=== PATIENT | male | born 1950 | race Caucasian/White ===

== ENCOUNTER 2018-04-18 18:50 | Emergency (ER) | payer MEDICARE, BC ==
[2018-04-18] MEDS: SOD CHLORIDE 0.9% 1,000 ML IV (18:20)
[2018-04-18 19:13] LABS: ADD MAN DIFF? NO
[2018-04-18 19:18] LABS: WHITE BLOOD COUNT 8.3 10^3/ul (4.8-10.8)
[2018-04-18 19:18] LABS: BASOPHIL # 0.1 10^3/ul (0.0-0.1); BASOPHILS % 0.7 % (0.0-2.0); EOSINOPHILS # 0.1 10^3/ul (0.0-0.5); EOSINOPHILS % 0.8 % (0.0-7.0); HEMATOCRIT 30.2 % (42.0-52.0); LYMPHOCYTES # 1.7 10^3/ul (0.8-2.9); LYMPHOCYTES % 20.6 % (15.0-51.0); MEAN CORPUSCULAR HEMOGLOBIN 31.6 pg (29.0-33.0); MEAN CORPUSCULAR HGB CONC 33.1 g/dl (32.0-37.0); MEAN CORPUSCULAR VOLUME 95.6 fl (82.0-101.0); MEAN PLATELET VOLUME 9.6 fl (7.4-10.4); MONOCYTE # 0.8 10^3/ul (0.3-0.9); MONOCYTES % 9.4 % (0.0-11.0); NEUTROPHIL # 5.6 10^3/ul (1.6-7.5); NEUTROPHILS % 68.3 % (39.0-77.0); PLATELET COUNT 258 10^3/UL (140-415); RED BLOOD COUNT 3.16 10^6/ul (4.70-6.10); RED CELL DISTRIBUTION WIDTH 14.8 % (11.5-14.5)
[2018-04-18 19:38] LABS: ANION GAP 15 (8-16); BLOOD UREA NITROGEN 22 mg/dl (7-20); CALCIUM 9.3 mg/dl (8.4-10.2); CARBON DIOXIDE 24 mmol/L (21-31); CHLORIDE 105 mmol/L (97-110); CREATININE 1.06 mg/dl (0.61-1.24); GLUCOSE 156 mg/dl (70-220); POTASSIUM 4.4 mmol/L (3.5-5.1); SODIUM 140 mmol/L (135-144)
[2018-04-18 19:50] LABS: TROPONIN-I < 0.012 ng/ml (0.000-0.120)
== END 2018-04-18 22:59 | disposition home or self-care (01) ==
LOC: E/R 18:50
DX: D64.9 Anemia, unspecified (principal); R53.1 Weakness; E11.9 Type 2 diabetes mellitus without complications; R51 Headache; Z79.84 Long term (current) use of oral hypoglycemic drugs
CPT/HCPCS: 36415; 70450; 71045; 80048; 84484; 85025; 93005; 99285-25

== ENCOUNTER 2018-06-09 20:39 | Inpatient (IN) | payer MEDICARE, BC ==
[2018-06-09] MEDS: SODIUM CHLORIDE 0.9% 1L BAG IV* (20:58)
[2018-06-09 21:00] LABS: ABNORMAL IP MESSAGE 1; HEMOGLOBIN 10.9 g/dl (14.0-18.0); MEAN CORPUSCULAR HEMOGLOBIN 31.8 pg (29.0-33.0); MEAN CORPUSCULAR HGB CONC 34.1 g/dl (32.0-37.0); MEAN CORPUSCULAR VOLUME 93.3 fl (82.0-101.0); MEAN PLATELET VOLUME 9.9 fl (7.4-10.4); PLATELET COUNT 319 10^3/UL (140-415); POSITIVE DIFF @See below; RED BLOOD COUNT 3.43 10^6/ul (4.70-6.10); RED CELL DISTRIBUTION WIDTH 13.2 % (11.5-14.5)
[2018-06-09 21:00] LABS: WHITE BLOOD COUNT 26.2 10^3/ul (4.8-10.8)
[2018-06-09] MEDS: ACETAMINOPHEN 650 MG SUPP PR (21:02)
[2018-06-09] MEDS: ACETAMINOPHEN 325 MG TAB PO (21:03)
[2018-06-09 21:08] LABS: ADD MAN DIFF? YES; PATH REVIEW? YES
[2018-06-09 21:20] LABS: INR 1.26; PARTIAL THROMBOPLASTIN TIME 29.7 Sec (23.0-35.0); PT RATIO 1.3
[2018-06-09 21:26] LABS: ANION GAP 11 (5-13); BLOOD UREA NITROGEN 34 mg/dl (7-20); CALCIUM 9.6 mg/dl (8.4-10.2); CARBON DIOXIDE 26 mmol/L (21-31); CHLORIDE 105 mmol/L (97-110); CREATININE 1.03 mg/dl (0.61-1.24); Estimated GFR > 60 mL/min (>60); GLUCOSE 145 mg/dl (70-220); POTASSIUM 4.5 mmol/L (3.5-5.1); SODIUM 142 mmol/L (135-144)
[2018-06-09 21:35] LABS: TROPONIN-I < 0.012 ng/ml (0.000-0.120)
[2018-06-09 21:42] LABS: ADD UMIC YES; UR ASCORBIC ACID NEGATIVE (NEGATIVE); UR BACTERIA FEW /HPF (NONE SEEN); UR BILIRUBIN (Dip) NEGATIVE (NEGATIVE); UR BLOOD (Dip) 3+ mg/dL (NEGATIVE); UR CLARITY TURBID (CLEAR); UR COLOR YELLOW (YELLOW); UR GLUCOSE (Dip) NEGATIVE (NEGATIVE); UR KETONES (Dip) NEGATIVE (NEGATIVE); UR LEUKOCYTE ESTERASE (Dip) 3+ Leu/ul (NEGATIVE); UR MUCUS FEW /HPF (NONE SEEN); UR NITRITE (Dip) POSITIVE (NEGATIVE); UR RBC 36 /HPF (0-5); UR SPECIFIC GRAVITY (Dip) 1.015 (1.003-1.030); UR TOTAL PROTEIN (Dip) 1+ mg/dl (NEGATIVE); UR UROBILINOGEN (Dip) NEGATIVE (NEGATIVE); UR WBC > 182 /HPF (0-5)
[2018-06-09 21:46] LABS: BAND NEUTROPHILS #M 1.3 10^3/ul (0.0-0.6); BAND NEUTROPHILS % (M) 5 % (0-4); LYMPHOCYTES % (M) 8 % (15-51); MONOCYTES % (M) 8 % (0-11); PLATELET ESTIMATE NORMAL; SEGMENTED NEUTROPHILS (M) % 79 % (39-77); SMUDGE%M 7 % (0-0)
[2018-06-09] MEDS: CEFTRIAXONE 1 GM/50 ML (PMX) 50 ML IVPB (22:30)
[2018-06-09] MEDS: PIPER-TAZO 3.375 GM IV (PMX) 100 ML IVPB (23:10)
[2018-06-10] MEDS ORDERED: NACL 0.9% 3 ML SYG IV (00:30)
[2018-06-10] MEDS ORDERED: ACETAMINOPHEN 650 MG SUPP PR (00:30)
[2018-06-10 01:34] LABS: LACTIC ACID 1.1 mmol/L (0.5-2.0)
[2018-06-10] MEDS: SOD CHLORIDE 0.9% 1,000 ML IV ×3 (02:30→17:25)
[2018-06-10] MEDS ORDERED: GLUCOSE GEL 15 GRAM TUBE PO ×2 (05:00)
[2018-06-10] MEDS ORDERED: GLUCAGON 1 MG INJ IM (05:00)
[2018-06-10] MEDS ORDERED: DEXTROSE 50% 50 ML SYRINGE IV (05:00)
[2018-06-10] MEDS ORDERED: GLUCOSE GEL 15 GRAM TUBE BUCCAL (05:00)
[2018-06-10] MEDS: PIPER-TAZO 3.375 GM IV (PMX) 100 ML IVPB ×3 (06:05→17:27)
[2018-06-10 06:15] LABS: ADD MAN DIFF? NO
[2018-06-10 06:24] LABS: BASOPHIL # 0.1 10^3/ul (0.0-0.1); BASOPHILS % 0.3 % (0.0-2.0); EOSINOPHILS # 0.1 10^3/ul (0.0-0.5); EOSINOPHILS % 0.5 % (0.0-7.0); HEMATOCRIT 28.5 % (42.0-52.0); HEMOGLOBIN 9.5 g/dl (14.0-18.0); LYMPHOCYTES # 1.1 10^3/ul (0.8-2.9); LYMPHOCYTES % 5.6 % (15.0-51.0); MEAN CORPUSCULAR HEMOGLOBIN 31.7 pg (29.0-33.0); MEAN CORPUSCULAR HGB CONC 33.3 g/dl (32.0-37.0); MEAN PLATELET VOLUME 10.3 fl (7.4-10.4); MONOCYTE # 1.3 10^3/ul (0.3-0.9); MONOCYTES % 6.2 % (0.0-11.0); NEUTROPHIL # 17.4 10^3/ul (1.6-7.5); NEUTROPHILS % 86.2 % (39.0-77.0); PLATELET COUNT 278 10^3/UL (140-415); RED CELL DISTRIBUTION WIDTH 13.2 % (11.5-14.5)
[2018-06-10 06:24] LABS: WHITE BLOOD COUNT 20.2 10^3/ul (4.8-10.8)
[2018-06-10 06:48] LABS: ALANINE AMINOTRANSFERASE 12 IU/L (13-69); ALBUMIN 3.4 g/dl (3.3-4.9); ALBUMIN/GLOBULIN RATIO 1.17; ALKALINE PHOSPHATASE 76 IU/L (42-121); ANION GAP 11 (5-13); ASPARTATE AMINO TRANSFERASE 21 IU/L (15-46); BILIRUBIN,INDIRECT 0.1 mg/dl (0-1.1); BILIRUBIN,TOTAL 0.1 mg/dl (0.2-1.3); BLOOD UREA NITROGEN 27 mg/dl (7-20); CALCIUM 8.8 mg/dl (8.4-10.2); CARBON DIOXIDE 25 mmol/L (21-31); CHLORIDE 109 mmol/L (97-110); CREATININE 1.02 mg/dl (0.61-1.24); Estimated GFR > 60 mL/min (>60); GLUCOSE 121 mg/dl (70-220); POTASSIUM 3.5 mmol/L (3.5-5.1); SODIUM 145 mmol/L (135-144); TOTAL PROTEIN 6.3 g/dl (6.1-8.1)
[2018-06-10] MEDS: APIXABAN 5 MG TABLET PO (09:06)
[2018-06-10] MEDS: INSULIN ASPART [NOVOLOG] 3 ML PEN SC ×4 (09:08→21:00)
[2018-06-10] MEDS: HALOPERIDOL 5 MG INJ IM ×2 (12:35→22:54)
[2018-06-10] MEDS: QUETIAPINE 25 MG TAB PO ×2 (14:47→21:22)
[2018-06-10] MEDS ORDERED: QUETIAPINE 25 MG TAB PO (21:00)
[2018-06-10] MEDS: ATORVASTATIN 40 MG TAB PO (21:22)
[2018-06-10] MEDS: LORAZEPAM 2 MG INJ IV (23:24)
[2018-06-11] MEDS: PIPER-TAZO 3.375 GM IV (PMX) 100 ML IVPB ×4 (00:25→17:55)
[2018-06-11] MEDS ORDERED: VANCOMYCIN IV PER PHARMACY XX (01:30)
[2018-06-11] MEDS: ACCU-CHEK XX (02:00)
[2018-06-11] MEDS: VANCOMYCIN 1.25 GM in SOD CHLORIDE 0.9% 250 ML IVPB (02:37)
[2018-06-11 05:28] LABS: ADD MAN DIFF? NO
[2018-06-11 05:36] LABS: WHITE BLOOD COUNT 17.4 10^3/ul (4.8-10.8)
[2018-06-11 05:36] LABS: BASOPHIL # 0.1 10^3/ul (0.0-0.1); BASOPHILS % 0.3 % (0.0-2.0); EOSINOPHILS # 0.2 10^3/ul (0.0-0.5); EOSINOPHILS % 1.4 % (0.0-7.0); HEMATOCRIT 28.3 % (42.0-52.0); HEMOGLOBIN 9.6 g/dl (14.0-18.0); LYMPHOCYTES % 11.6 % (15.0-51.0); MEAN CORPUSCULAR HEMOGLOBIN 31.8 pg (29.0-33.0); MEAN CORPUSCULAR HGB CONC 33.9 g/dl (32.0-37.0); MEAN CORPUSCULAR VOLUME 93.7 fl (82.0-101.0); MEAN PLATELET VOLUME 10.2 fl (7.4-10.4); MONOCYTE # 1.3 10^3/ul (0.3-0.9); MONOCYTES % 7.2 % (0.0-11.0); NEUTROPHIL # 13.7 10^3/ul (1.6-7.5); NEUTROPHILS % 78.9 % (39.0-77.0); PLATELET COUNT 298 10^3/UL (140-415); RED BLOOD COUNT 3.02 10^6/ul (4.70-6.10); RED CELL DISTRIBUTION WIDTH 13.1 % (11.5-14.5)
[2018-06-11 06:00] LABS: CHOL/HDL RATIO 2.9 RATIO; CHOLESTEROL 98 mg/dl (100-200); HDL CHOLESTEROL 33 mg/dl (30-78); LDL CHOLESTEROL,CALCULATED 50 mg/dl; MAGNESIUM 1.8 mg/dl (1.7-2.5); TRIGLYCERIDES 75 mg/dl (0-149)
[2018-06-11 06:00] LABS: PHOSPHORUS 3.5 mg/dl (2.5-4.9)
[2018-06-11 06:09] LABS: ALANINE AMINOTRANSFERASE 31 IU/L (13-69); ALBUMIN 3.1 g/dl (3.3-4.9); ALBUMIN/GLOBULIN RATIO 1.06; ALKALINE PHOSPHATASE 84 IU/L (42-121); ANION GAP 9 (5-13); ASPARTATE AMINO TRANSFERASE 27 IU/L (15-46); BILIRUBIN,INDIRECT 0.3 mg/dl (0-1.1); BILIRUBIN,TOTAL 0.3 mg/dl (0.2-1.3); BLOOD UREA NITROGEN 23 mg/dl (7-20); CALCIUM 8.9 mg/dl (8.4-10.2); CARBON DIOXIDE 26 mmol/L (21-31); CHLORIDE 111 mmol/L (97-110); CREATININE 1.04 mg/dl (0.61-1.24); Estimated GFR > 60 mL/min (>60); GLUCOSE 154 mg/dl (70-220); POTASSIUM 3.2 mmol/L (3.5-5.1); SODIUM 146 mmol/L (135-144)
[2018-06-11] MEDS: INSULIN ASPART [NOVOLOG] 3 ML PEN SC ×4 (08:34→20:55)
[2018-06-11] MEDS: QUETIAPINE 25 MG TAB PO ×2 (09:33→20:57)
[2018-06-11] MEDS: POTASSIUM CHLORIDE (SR) 20 MEQ TAB PO (09:36)
[2018-06-11] MEDS: ENOXAPARIN 80 MG/0.8 ML SYG SC ×2 (09:42→20:59)
[2018-06-11] MEDS: SOD CHLORIDE 0.9% 1,000 ML IV (09:44)
[2018-06-11] MEDS: VANCOMYCIN 1 GM 250 ML IVPB (14:49)
[2018-06-11] MEDS: HALOPERIDOL 5 MG INJ IM (17:55)
[2018-06-11] MEDS: ATORVASTATIN 40 MG TAB PO (20:57)
[2018-06-12] MEDS: PIPER-TAZO 3.375 GM IV (PMX) 100 ML IVPB ×5 (00:11→23:50)
[2018-06-12] MEDS: SOD CHLORIDE 0.9% 1,000 ML IV (01:57)
[2018-06-12] MEDS: ACCU-CHEK XX (02:00)
[2018-06-12] MEDS: VANCOMYCIN 1 GM 250 ML IVPB ×2 (02:24→15:23)
[2018-06-12] MEDS: HALOPERIDOL 5 MG INJ IM ×2 (03:52→11:19)
[2018-06-12] MEDS: INSULIN ASPART [NOVOLOG] 3 ML PEN SC ×4 (08:00→21:00)
[2018-06-12] MEDS: ENOXAPARIN 80 MG/0.8 ML SYG SC ×2 (08:40→21:08)
[2018-06-12] MEDS: QUETIAPINE 25 MG TAB PO ×2 (08:41→21:04)
[2018-06-12 10:32] LABS: ADD MAN DIFF? NO
[2018-06-12 10:57] LABS: PHOSPHORUS 3.5 mg/dl (2.5-4.9)
[2018-06-12 10:57] LABS: ALANINE AMINOTRANSFERASE 31 IU/L (13-69); ALBUMIN 3.8 g/dl (3.3-4.9); ALBUMIN/GLOBULIN RATIO 1.22; ALKALINE PHOSPHATASE 142 IU/L (42-121); ANION GAP 12 (5-13); ASPARTATE AMINO TRANSFERASE 42 IU/L (15-46); BILIRUBIN,INDIRECT 0.6 mg/dl (0-1.1); BILIRUBIN,TOTAL 0.6 mg/dl (0.2-1.3); BLOOD UREA NITROGEN 19 mg/dl (7-20); CALCIUM 9.2 mg/dl (8.4-10.2); CARBON DIOXIDE 24 mmol/L (21-31); CHLORIDE 108 mmol/L (97-110); CREATININE 0.98 mg/dl (0.61-1.24); Estimated GFR > 60 mL/min (>60); GLUCOSE 199 mg/dl (70-220); MAGNESIUM 1.5 mg/dl (1.7-2.5); POTASSIUM 3.5 mmol/L (3.5-5.1); SODIUM 144 mmol/L (135-144); TOTAL PROTEIN 6.9 g/dl (6.1-8.1)
[2018-06-12 11:06] LABS: BASOPHILS % 0.2 % (0.0-2.0); EOSINOPHILS # 0.1 10^3/ul (0.0-0.5); EOSINOPHILS % 0.5 % (0.0-7.0); HEMATOCRIT 31.2 % (42.0-52.0); HEMOGLOBIN 10.6 g/dl (14.0-18.0); LYMPHOCYTES # 1.3 10^3/ul (0.8-2.9); LYMPHOCYTES % 7.3 % (15.0-51.0); MEAN CORPUSCULAR HEMOGLOBIN 31.5 pg (29.0-33.0); MEAN CORPUSCULAR VOLUME 92.9 fl (82.0-101.0); MEAN PLATELET VOLUME 10.2 fl (7.4-10.4); MONOCYTE # 1.2 10^3/ul (0.3-0.9); MONOCYTES % 6.7 % (0.0-11.0); NEUTROPHIL # 15.3 10^3/ul (1.6-7.5); NEUTROPHILS % 84.7 % (39.0-77.0); PLATELET COUNT 337 10^3/UL (140-415); RED BLOOD COUNT 3.36 10^6/ul (4.70-6.10)
[2018-06-12 14:43] LABS: VANCOMYCIN,TROUGH 13.1 ug/ml (10.0-20.0)
[2018-06-12] MEDS: TAMSULOSIN (SR) 0.4 MG CAP PO (17:47)
[2018-06-12] MEDS: MEMANTINE 5 MG TAB PO (17:47)
[2018-06-12] MEDS: ATORVASTATIN 40 MG TAB PO (21:04)
[2018-06-12] MEDS: traZODone 50 MG TAB PO (21:07)
[2018-06-12] MEDS: SENNA/DOCUSATE NA (8.6MG/50MG) TAB PO (21:07)
[2018-06-12] MEDS: LACTOBACILLUS RHAMNOSUS CAP PO (21:07)
[2018-06-13] MEDS: ACCU-CHEK XX ×2 (02:00→23:43)
[2018-06-13] MEDS: VANCOMYCIN 1 GM 250 ML IVPB ×2 (02:19→14:46)
[2018-06-13] MEDS: PIPER-TAZO 3.375 GM IV (PMX) 100 ML IVPB ×4 (05:49→23:32)
[2018-06-13 07:11] LABS: ADD MAN DIFF? NO
[2018-06-13 07:18] LABS: WHITE BLOOD COUNT 18.4 10^3/ul (4.8-10.8)
[2018-06-13 07:18] LABS: ABNORMAL IP MESSAGE 1; BASOPHILS % 0.2 % (0.0-2.0); EOSINOPHILS # 0.1 10^3/ul (0.0-0.5); EOSINOPHILS % 0.4 % (0.0-7.0); HEMATOCRIT 28.3 % (42.0-52.0); HEMOGLOBIN 9.5 g/dl (14.0-18.0); LYMPHOCYTES % 5.7 % (15.0-51.0); MEAN CORPUSCULAR HGB CONC 33.6 g/dl (32.0-37.0); MEAN CORPUSCULAR VOLUME 92.5 fl (82.0-101.0); MEAN PLATELET VOLUME 10.1 fl (7.4-10.4); MONOCYTE # 1.6 10^3/ul (0.3-0.9); MONOCYTES % 8.4 % (0.0-11.0); NEUTROPHIL # 15.5 10^3/ul (1.6-7.5); NEUTROPHILS % 84.4 % (39.0-77.0); PLATELET COUNT 283 10^3/UL (140-415); POSITIVE DIFF @See below; RED BLOOD COUNT 3.06 10^6/ul (4.70-6.10); RED CELL DISTRIBUTION WIDTH 12.7 % (11.5-14.5)
[2018-06-13 08:03] LABS: PHOSPHORUS 3.3 mg/dl (2.5-4.9)
[2018-06-13 08:03] LABS: INR 1.23; MAGNESIUM 1.5 mg/dl (1.7-2.5); PROTIME 15.7 Sec (11.9-14.9); PT RATIO 1.2
[2018-06-13 08:04] LABS: ALANINE AMINOTRANSFERASE 37 IU/L (13-69); ALBUMIN 2.9 g/dl (3.3-4.9); ALKALINE PHOSPHATASE 150 IU/L (42-121); ANION GAP 8 (5-13); ASPARTATE AMINO TRANSFERASE 44 IU/L (15-46); BILIRUBIN,INDIRECT 0.4 mg/dl (0-1.1); BILIRUBIN,TOTAL 0.4 mg/dl (0.2-1.3); BLOOD UREA NITROGEN 16 mg/dl (7-20); CALCIUM 7.9 mg/dl (8.4-10.2); CARBON DIOXIDE 24 mmol/L (21-31); CHLORIDE 109 mmol/L (97-110); CREATININE 0.84 mg/dl (0.61-1.24); Estimated GFR > 60 mL/min (>60); GLUCOSE 193 mg/dl (70-220); SODIUM 141 mmol/L (135-144); TOTAL PROTEIN 6.1 g/dl (6.1-8.1)
[2018-06-13 08:08] LABS: POTASSIUM 2.7 mmol/L (3.5-5.1)
[2018-06-13 08:15] LABS: FREE T4 (FREE THYROXINE) 1.36 ng/dl (0.78-2.44)
[2018-06-13] MEDS: INSULIN ASPART [NOVOLOG] 3 ML PEN SC ×4 (08:17→20:50)
[2018-06-13 08:29] LABS: TRIIODOTHYRONINE 0.53 ng/ml (0.97-1.69)
[2018-06-13] MEDS: QUETIAPINE 25 MG TAB PO ×2 (09:45→20:51)
[2018-06-13] MEDS: LACTOBACILLUS RHAMNOSUS CAP PO ×2 (09:45→20:51)
[2018-06-13] MEDS: FAMOTIDINE 20 MG TAB PO (09:45)
[2018-06-13] MEDS: MEMANTINE 5 MG TAB PO (09:45)
[2018-06-13] MEDS: ENOXAPARIN 80 MG/0.8 ML SYG SC ×2 (09:46→20:48)
[2018-06-13] MEDS: POTASSIUM CHLORIDE 50 ML IVPB (10:17)
[2018-06-13] MEDS: MAGNESIUM OXIDE 400 MG TAB PO ×2 (14:46→20:51)
[2018-06-13] MEDS: POTASSIUM CHLORIDE 20 MEQ POWDER FOR ORAL SOLN PO ×2 (14:46→20:50)
[2018-06-13] MEDS: POTASSIUM CHLORIDE 100 ML IVPB (18:02)
[2018-06-13] MEDS: TAMSULOSIN (SR) 0.4 MG CAP PO (20:51)
[2018-06-13] MEDS: SENNA/DOCUSATE NA (8.6MG/50MG) TAB PO (20:51)
[2018-06-13] MEDS: ATORVASTATIN 40 MG TAB PO (20:51)
[2018-06-13] MEDS: traZODone 50 MG TAB PO (20:51)
[2018-06-14] MEDS: VANCOMYCIN 1 GM 250 ML IVPB ×2 (01:02→13:29)
[2018-06-14] MEDS: PIPER-TAZO 3.375 GM IV (PMX) 100 ML IVPB ×2 (05:55→12:14)
[2018-06-14 06:19] LABS: ADD MAN DIFF? NO
[2018-06-14 06:34] LABS: BASOPHILS % 0.1 % (0.0-2.0); EOSINOPHILS % 0.2 % (0.0-7.0); HEMATOCRIT 27.1 % (42.0-52.0); HEMOGLOBIN 9.2 g/dl (14.0-18.0); LYMPHOCYTES # 1.1 10^3/ul (0.8-2.9); LYMPHOCYTES % 6.6 % (15.0-51.0); MEAN CORPUSCULAR HEMOGLOBIN 31.4 pg (29.0-33.0); MEAN CORPUSCULAR HGB CONC 33.9 g/dl (32.0-37.0); MEAN CORPUSCULAR VOLUME 92.5 fl (82.0-101.0); MEAN PLATELET VOLUME 10.5 fl (7.4-10.4); MONOCYTE # 1.3 10^3/ul (0.3-0.9); MONOCYTES % 7.3 % (0.0-11.0); NEUTROPHIL # 14.4 10^3/ul (1.6-7.5); NEUTROPHILS % 84.7 % (39.0-77.0); PLATELET COUNT 247 10^3/UL (140-415); RED BLOOD COUNT 2.93 10^6/ul (4.70-6.10); RED CELL DISTRIBUTION WIDTH 12.9 % (11.5-14.5)
[2018-06-14 07:11] LABS: ALANINE AMINOTRANSFERASE 81 IU/L (13-69); ALBUMIN/GLOBULIN RATIO 0.88; ALKALINE PHOSPHATASE 207 IU/L (42-121); ANION GAP 8 (5-13); ASPARTATE AMINO TRANSFERASE 72 IU/L (15-46); BILIRUBIN,INDIRECT 0.3 mg/dl (0-1.1); BILIRUBIN,TOTAL 0.3 mg/dl (0.2-1.3); BLOOD UREA NITROGEN 16 mg/dl (7-20); CALCIUM 8.3 mg/dl (8.4-10.2); CARBON DIOXIDE 25 mmol/L (21-31); CHLORIDE 110 mmol/L (97-110); CREATININE 0.88 mg/dl (0.61-1.24); Estimated GFR > 60 mL/min (>60); GLUCOSE 228 mg/dl (70-220); POTASSIUM 3.7 mmol/L (3.5-5.1); SODIUM 143 mmol/L (135-144); TOTAL PROTEIN 6.4 g/dl (6.1-8.1)
[2018-06-14] MEDS: INSULIN ASPART [NOVOLOG] 3 ML PEN SC ×4 (08:30→21:08)
[2018-06-14] MEDS: ENOXAPARIN 80 MG/0.8 ML SYG SC ×2 (08:31→21:04)
[2018-06-14] MEDS: LACTOBACILLUS RHAMNOSUS CAP PO ×2 (08:32→21:02)
[2018-06-14] MEDS: MEMANTINE 5 MG TAB PO (08:32)
[2018-06-14] MEDS: MAGNESIUM OXIDE 400 MG TAB PO ×2 (08:32→21:03)
[2018-06-14] MEDS: QUETIAPINE 25 MG TAB PO ×2 (08:33→21:03)
[2018-06-14] MEDS: FAMOTIDINE 20 MG TAB PO (08:33)
[2018-06-14] MEDS: POTASSIUM CHLORIDE 20 MEQ POWDER FOR ORAL SOLN PO ×2 (08:33→21:02)
[2018-06-14] MEDS: MAGNESIUM HYDROXIDE 30ML CUP PO ×2 (12:16→21:02)
[2018-06-14] MEDS: CEFEPIME 1GM/50 ML (PMX) 50 ML IVPB (21:01)
[2018-06-14] MEDS: TAMSULOSIN (SR) 0.4 MG CAP PO (21:02)
[2018-06-14] MEDS: traZODone 50 MG TAB PO (21:03)
[2018-06-14] MEDS: ATORVASTATIN 40 MG TAB PO (21:03)
[2018-06-14] MEDS: SENNA/DOCUSATE NA (8.6MG/50MG) TAB PO (21:03)
[2018-06-15] MEDS: ACCU-CHEK XX (02:00)
[2018-06-15 05:51] LABS: ADD MAN DIFF? NO
[2018-06-15 05:58] LABS: WHITE BLOOD COUNT 10.5 10^3/ul (4.8-10.8)
[2018-06-15 05:58] LABS: BASOPHIL # 0.1 10^3/ul (0.0-0.1); BASOPHILS % 0.5 % (0.0-2.0); EOSINOPHILS # 0.3 10^3/ul (0.0-0.5); EOSINOPHILS % 2.9 % (0.0-7.0); HEMATOCRIT 26.7 % (42.0-52.0); LYMPHOCYTES # 1.6 10^3/ul (0.8-2.9); LYMPHOCYTES % 14.9 % (15.0-51.0); MEAN CORPUSCULAR HEMOGLOBIN 31.1 pg (29.0-33.0); MEAN CORPUSCULAR HGB CONC 33.7 g/dl (32.0-37.0); MEAN CORPUSCULAR VOLUME 92.4 fl (82.0-101.0); MEAN PLATELET VOLUME 10.1 fl (7.4-10.4); MONOCYTE # 0.9 10^3/ul (0.3-0.9); MONOCYTES % 8.4 % (0.0-11.0); NEUTROPHIL # 7.6 10^3/ul (1.6-7.5); NEUTROPHILS % 72.6 % (39.0-77.0); PLATELET COUNT 270 10^3/UL (140-415); RED BLOOD COUNT 2.89 10^6/ul (4.70-6.10); RED CELL DISTRIBUTION WIDTH 12.8 % (11.5-14.5)
[2018-06-15 06:28] LABS: ALANINE AMINOTRANSFERASE 115 IU/L (13-69); ALKALINE PHOSPHATASE 231 IU/L (42-121); ANION GAP 6 (5-13); ASPARTATE AMINO TRANSFERASE 82 IU/L (15-46); BILIRUBIN,INDIRECT 0.2 mg/dl (0-1.1); BILIRUBIN,TOTAL 0.2 mg/dl (0.2-1.3); BLOOD UREA NITROGEN 14 mg/dl (7-20); CALCIUM 8.3 mg/dl (8.4-10.2); CARBON DIOXIDE 29 mmol/L (21-31); CHLORIDE 108 mmol/L (97-110); CREATININE 0.77 mg/dl (0.61-1.24); Estimated GFR > 60 mL/min (>60); GLUCOSE 162 mg/dl (70-220); POTASSIUM 3.6 mmol/L (3.5-5.1); SODIUM 143 mmol/L (135-144)
[2018-06-15 06:32] LABS: MAGNESIUM 2.2 mg/dl (1.7-2.5)
[2018-06-15 06:32] LABS: PHOSPHORUS 1.8 mg/dl (2.5-4.9)
[2018-06-15] MEDS: QUETIAPINE 25 MG TAB PO ×2 (09:09→20:14)
[2018-06-15] MEDS: CEFEPIME 1GM/50 ML (PMX) 50 ML IVPB ×2 (09:09→20:02)
[2018-06-15] MEDS: MAGNESIUM OXIDE 400 MG TAB PO ×2 (09:09→20:15)
[2018-06-15] MEDS: FAMOTIDINE 20 MG TAB PO (09:09)
[2018-06-15] MEDS: POTASSIUM CHLORIDE 20 MEQ POWDER FOR ORAL SOLN PO ×2 (09:09→20:15)
[2018-06-15] MEDS: MAGNESIUM HYDROXIDE 30ML CUP PO (09:09)
[2018-06-15] MEDS: MEMANTINE 5 MG TAB PO (09:09)
[2018-06-15] MEDS: LACTOBACILLUS RHAMNOSUS CAP PO ×2 (09:09→20:15)
[2018-06-15] MEDS: ENOXAPARIN 80 MG/0.8 ML SYG SC ×2 (09:11→20:06)
[2018-06-15] MEDS: INSULIN ASPART [NOVOLOG] 3 ML PEN SC ×4 (09:19→21:00)
[2018-06-15] MEDS: ATORVASTATIN 40 MG TAB PO (20:14)
[2018-06-15] MEDS: TAMSULOSIN (SR) 0.4 MG CAP PO (20:14)
[2018-06-15] MEDS: SENNA/DOCUSATE NA (8.6MG/50MG) TAB PO (20:15)
[2018-06-15] MEDS: traZODone 50 MG TAB PO (20:18)
[2018-06-16] MEDS: ACCU-CHEK XX (02:00)
[2018-06-16] MEDS: INSULIN ASPART [NOVOLOG] 3 ML PEN SC ×4 (08:21→20:46)
[2018-06-16] MEDS: CEFEPIME 1GM/50 ML (PMX) 50 ML IVPB (08:22)
[2018-06-16] MEDS: FAMOTIDINE 20 MG TAB PO (08:23)
[2018-06-16] MEDS: QUETIAPINE 25 MG TAB PO ×2 (08:23→20:33)
[2018-06-16] MEDS: MAGNESIUM OXIDE 400 MG TAB PO ×2 (08:23→20:33)
[2018-06-16] MEDS: POTASSIUM CHLORIDE 20 MEQ POWDER FOR ORAL SOLN PO ×2 (08:23→20:33)
[2018-06-16] MEDS: ENOXAPARIN 80 MG/0.8 ML SYG SC ×2 (08:23→20:37)
[2018-06-16] MEDS: LACTOBACILLUS RHAMNOSUS CAP PO ×2 (08:23→20:34)
[2018-06-16] MEDS: MEMANTINE 5 MG TAB PO (08:23)
[2018-06-16] MEDS: CIPROFLOXACIN 500 MG TAB PO (17:46)
[2018-06-16] MEDS: TAMSULOSIN (SR) 0.4 MG CAP PO (20:33)
[2018-06-16] MEDS: ATORVASTATIN 40 MG TAB PO (20:34)
[2018-06-16] MEDS: traZODone 50 MG TAB PO (20:34)
[2018-06-16] MEDS: SENNA/DOCUSATE NA (8.6MG/50MG) TAB PO (20:38)
[2018-06-17] MEDS: ACCU-CHEK XX (02:00)
[2018-06-17] MEDS: CIPROFLOXACIN 500 MG TAB PO ×2 (05:26→17:33)
[2018-06-17 05:55] LABS: ADD MAN DIFF? NO
[2018-06-17 05:58] LABS: WHITE BLOOD COUNT 8.6 10^3/ul (4.8-10.8)
[2018-06-17 05:58] LABS: BASOPHILS % 0.5 % (0.0-2.0); EOSINOPHILS # 0.2 10^3/ul (0.0-0.5); EOSINOPHILS % 2.2 % (0.0-7.0); HEMATOCRIT 27.2 % (42.0-52.0); HEMOGLOBIN 9.1 g/dl (14.0-18.0); LYMPHOCYTES # 1.8 10^3/ul (0.8-2.9); LYMPHOCYTES % 20.9 % (15.0-51.0); MEAN CORPUSCULAR HEMOGLOBIN 31.4 pg (29.0-33.0); MEAN CORPUSCULAR HGB CONC 33.5 g/dl (32.0-37.0); MEAN CORPUSCULAR VOLUME 93.8 fl (82.0-101.0); MEAN PLATELET VOLUME 9.9 fl (7.4-10.4); MONOCYTE # 0.7 10^3/ul (0.3-0.9); MONOCYTES % 7.9 % (0.0-11.0); NEUTROPHIL # 5.8 10^3/ul (1.6-7.5); NEUTROPHILS % 67.1 % (39.0-77.0); PLATELET COUNT 317 10^3/UL (140-415); RED CELL DISTRIBUTION WIDTH 12.6 % (11.5-14.5)
[2018-06-17 06:16] LABS: ANION GAP 8 (5-13); BLOOD UREA NITROGEN 15 mg/dl (7-20); CALCIUM 8.8 mg/dl (8.4-10.2); CARBON DIOXIDE 27 mmol/L (21-31); CHLORIDE 105 mmol/L (97-110); CREATININE 0.65 mg/dl (0.61-1.24); Estimated GFR > 60 mL/min (>60); GLUCOSE 194 mg/dl (70-220); POTASSIUM 4.1 mmol/L (3.5-5.1); SODIUM 140 mmol/L (135-144)
[2018-06-17 06:18] LABS: AMMONIA 13 umol/l (9-30)
[2018-06-17] MEDS: QUETIAPINE 25 MG TAB PO ×2 (08:20→20:23)
[2018-06-17] MEDS: MAGNESIUM OXIDE 400 MG TAB PO ×2 (08:20→20:23)
[2018-06-17] MEDS: LACTOBACILLUS RHAMNOSUS CAP PO ×2 (08:20→20:23)
[2018-06-17] MEDS: POTASSIUM CHLORIDE 20 MEQ POWDER FOR ORAL SOLN PO ×2 (08:20→20:23)
[2018-06-17] MEDS: MEMANTINE 5 MG TAB PO ×2 (08:20→20:23)
[2018-06-17] MEDS: FAMOTIDINE 20 MG TAB PO (08:20)
[2018-06-17] MEDS: INSULIN GLARGINE [LANTus] (100 UNITS/ML) SYG SC (08:21)
[2018-06-17] MEDS: INSULIN ASPART [NOVOLOG] 3 ML PEN SC ×4 (08:22→20:20)
[2018-06-17] MEDS: ENOXAPARIN 80 MG/0.8 ML SYG SC ×2 (08:25→20:22)
[2018-06-17] MEDS: ATORVASTATIN 40 MG TAB PO (20:23)
[2018-06-17] MEDS: SENNA/DOCUSATE NA (8.6MG/50MG) TAB PO (20:23)
[2018-06-17] MEDS: traZODone 100 MG TAB PO (20:23)
[2018-06-17] MEDS: TAMSULOSIN (SR) 0.4 MG CAP PO (20:23)
[2018-06-18] MEDS: ACCU-CHEK XX ×2 (01:34→21:19)
[2018-06-18] MEDS: CIPROFLOXACIN 500 MG TAB PO ×3 (05:22→17:19)
[2018-06-18 09:00] LABS: ADD MAN DIFF? NO
[2018-06-18 09:08] LABS: BASOPHILS % 0.4 % (0.0-2.0); EOSINOPHILS # 0.3 10^3/ul (0.0-0.5); EOSINOPHILS % 2.5 % (0.0-7.0); HEMATOCRIT 26.6 % (42.0-52.0); HEMOGLOBIN 9.1 g/dl (14.0-18.0); LYMPHOCYTES % 19.9 % (15.0-51.0); MEAN CORPUSCULAR HEMOGLOBIN 31.4 pg (29.0-33.0); MEAN CORPUSCULAR HGB CONC 34.2 g/dl (32.0-37.0); MEAN CORPUSCULAR VOLUME 91.7 fl (82.0-101.0); MEAN PLATELET VOLUME 9.8 fl (7.4-10.4); MONOCYTE # 0.6 10^3/ul (0.3-0.9); MONOCYTES % 6.4 % (0.0-11.0); NEUTROPHIL # 6.8 10^3/ul (1.6-7.5); NEUTROPHILS % 69.1 % (39.0-77.0); PLATELET COUNT 302 10^3/UL (140-415); RED CELL DISTRIBUTION WIDTH 12.9 % (11.5-14.5)
[2018-06-18 09:08] LABS: WHITE BLOOD COUNT 9.8 10^3/ul (4.8-10.8)
[2018-06-18 09:21] LABS: AMMONIA 10 umol/l (9-30)
[2018-06-18] MEDS: POTASSIUM CHLORIDE 20 MEQ POWDER FOR ORAL SOLN PO ×2 (09:35→21:17)
[2018-06-18 09:37] LABS: ALANINE AMINOTRANSFERASE 125 IU/L (13-69); ALBUMIN 3.1 g/dl (3.3-4.9); ALBUMIN/GLOBULIN RATIO 0.83; ALKALINE PHOSPHATASE 192 IU/L (42-121); ANION GAP 7 (5-13); ASPARTATE AMINO TRANSFERASE 83 IU/L (15-46); BILIRUBIN,INDIRECT 0.3 mg/dl (0-1.1); BILIRUBIN,TOTAL 0.3 mg/dl (0.2-1.3); BLOOD UREA NITROGEN 14 mg/dl (7-20); CALCIUM 8.8 mg/dl (8.4-10.2); CARBON DIOXIDE 26 mmol/L (21-31); CHLORIDE 107 mmol/L (97-110); CREATININE 0.71 mg/dl (0.61-1.24); Estimated GFR > 60 mL/min (>60); GLUCOSE 170 mg/dl (70-220); MAGNESIUM 2.5 mg/dl (1.7-2.5); PHOSPHORUS 3.6 mg/dl (2.5-4.9); SODIUM 140 mmol/L (135-144); TOTAL PROTEIN 6.8 g/dl (6.1-8.1)
[2018-06-18] MEDS: MEMANTINE 5 MG TAB PO ×2 (09:37→21:18)
[2018-06-18] MEDS: LACTOBACILLUS RHAMNOSUS CAP PO ×2 (09:37→21:17)
[2018-06-18] MEDS: QUETIAPINE 25 MG TAB PO ×2 (09:37→21:17)
[2018-06-18] MEDS: FAMOTIDINE 20 MG TAB PO (09:37)
[2018-06-18] MEDS: MAGNESIUM OXIDE 400 MG TAB PO ×2 (09:37→21:18)
[2018-06-18] MEDS: ENOXAPARIN 80 MG/0.8 ML SYG SC ×2 (09:37→21:19)
[2018-06-18] MEDS: INSULIN ASPART [NOVOLOG] 3 ML PEN SC ×4 (09:38→21:00)
[2018-06-18] MEDS: INSULIN GLARGINE [LANTus] (100 UNITS/ML) SYG SC (09:38)
[2018-06-18 12:08] LABS: FOLATE 4.2 ng/ml (2.8-20.0)
[2018-06-18] MEDS: ATORVASTATIN 40 MG TAB PO (21:17)
[2018-06-18] MEDS: SENNA/DOCUSATE NA (8.6MG/50MG) TAB PO (21:17)
[2018-06-18] MEDS: CEFEPIME 1GM/50 ML (PMX) 50 ML IVPB (21:17)
[2018-06-18] MEDS: TAMSULOSIN (SR) 0.4 MG CAP PO (21:18)
[2018-06-18] MEDS: traZODone 100 MG TAB PO (21:18)
[2018-06-19] MEDS: CIPROFLOXACIN 500 MG TAB PO ×2 (06:06→18:02)
[2018-06-19] MEDS: CEFEPIME 1GM/50 ML (PMX) 50 ML IVPB ×2 (08:16→20:15)
[2018-06-19] MEDS: INSULIN GLARGINE [LANTus] (100 UNITS/ML) SYG SC (08:19)
[2018-06-19] MEDS: INSULIN ASPART [NOVOLOG] 3 ML PEN SC ×4 (08:20→20:32)
[2018-06-19] MEDS: POTASSIUM CHLORIDE 20 MEQ POWDER FOR ORAL SOLN PO ×2 (08:21→20:14)
[2018-06-19] MEDS: ENOXAPARIN 80 MG/0.8 ML SYG SC (08:21)
[2018-06-19] MEDS: LACTOBACILLUS RHAMNOSUS CAP PO ×2 (08:21→22:01)
[2018-06-19] MEDS: QUETIAPINE 25 MG TAB PO ×2 (08:22→20:12)
[2018-06-19] MEDS: FAMOTIDINE 20 MG TAB PO (08:22)
[2018-06-19] MEDS: MAGNESIUM OXIDE 400 MG TAB PO ×2 (08:22→20:13)
[2018-06-19] MEDS: MEMANTINE 5 MG TAB PO ×2 (08:22→20:13)
[2018-06-19 12:59] LABS: ADD MAN DIFF? NO
[2018-06-19 14:00] LABS: BASOPHIL # 0.1 10^3/ul (0.0-0.1); BASOPHILS % 0.5 % (0.0-2.0); EOSINOPHILS # 0.3 10^3/ul (0.0-0.5); EOSINOPHILS % 1.6 % (0.0-7.0); HEMATOCRIT 25.4 % (42.0-52.0); HEMOGLOBIN 8.3 g/dl (14.0-18.0); LYMPHOCYTES # 1.9 10^3/ul (0.8-2.9); LYMPHOCYTES % 12.3 % (15.0-51.0); MEAN CORPUSCULAR HEMOGLOBIN 31.2 pg (29.0-33.0); MEAN CORPUSCULAR HGB CONC 32.7 g/dl (32.0-37.0); MEAN CORPUSCULAR VOLUME 95.5 fl (82.0-101.0); MEAN PLATELET VOLUME 9.8 fl (7.4-10.4); MONOCYTE # 0.8 10^3/ul (0.3-0.9); MONOCYTES % 5.3 % (0.0-11.0); NEUTROPHIL # 12.2 10^3/ul (1.6-7.5); NEUTROPHILS % 78.2 % (39.0-77.0); PLATELET COUNT 308 10^3/UL (140-415); RED BLOOD COUNT 2.66 10^6/ul (4.70-6.10)
[2018-06-19 14:00] LABS: WHITE BLOOD COUNT 15.6 10^3/ul (4.8-10.8)
[2018-06-19 14:17] LABS: ALANINE AMINOTRANSFERASE 135 IU/L (13-69); ALBUMIN 3.2 g/dl (3.3-4.9); ALBUMIN/GLOBULIN RATIO 0.88; ALKALINE PHOSPHATASE 160 IU/L (42-121); ANION GAP 8 (5-13); ASPARTATE AMINO TRANSFERASE 77 IU/L (15-46); BILIRUBIN,INDIRECT 0.3 mg/dl (0-1.1); BILIRUBIN,TOTAL 0.3 mg/dl (0.2-1.3); BLOOD UREA NITROGEN 15 mg/dl (7-20); CALCIUM 8.7 mg/dl (8.4-10.2); CARBON DIOXIDE 23 mmol/L (21-31); CHLORIDE 108 mmol/L (97-110); CREATINE KINASE 39 IU/L (23-200); CREATININE 0.88 mg/dl (0.61-1.24); Estimated GFR > 60 mL/min (>60); GLUCOSE 183 mg/dl (70-220); MAGNESIUM 2.4 mg/dl (1.7-2.5); SODIUM 139 mmol/L (135-144); TOTAL PROTEIN 6.8 g/dl (6.1-8.1)
[2018-06-19 14:19] LABS: INR 1.08; PARTIAL THROMBOPLASTIN TIME 27.5 Sec (23.0-35.0); PROTIME 14.1 Sec (11.9-14.9); PT RATIO 1.1
[2018-06-19 14:28] LABS: CK INDEX 5.3; CK-MB 2.05 ng/ml (0.0-2.4); TROPONIN-I < 0.012 ng/ml (0.000-0.120)
[2018-06-19] MEDS: SOD CHLORIDE 0.9% 250 ML IV* (18:39)
[2018-06-19] MEDS: ATORVASTATIN 40 MG TAB PO (20:11)
[2018-06-19] MEDS: TAMSULOSIN (SR) 0.4 MG CAP PO (20:11)
[2018-06-19] MEDS: SENNA/DOCUSATE NA (8.6MG/50MG) TAB PO (20:12)
[2018-06-19] MEDS: traZODone 100 MG TAB PO (20:13)
[2018-06-20] MEDS: ACCU-CHEK XX (01:33)
[2018-06-20] MEDS: CIPROFLOXACIN 500 MG TAB PO ×2 (06:30→18:00)
[2018-06-20] MEDS: CEFEPIME 1GM/50 ML (PMX) 50 ML IVPB (09:13)
[2018-06-20] MEDS: MEMANTINE 5 MG TAB PO ×2 (09:23→21:00)
[2018-06-20] MEDS: FAMOTIDINE 20 MG TAB PO (09:23)
[2018-06-20] MEDS: LACTOBACILLUS RHAMNOSUS CAP PO ×2 (09:23→21:00)
[2018-06-20] MEDS: QUETIAPINE 25 MG TAB PO ×2 (09:24→21:00)
[2018-06-20] MEDS: POTASSIUM CHLORIDE 20 MEQ POWDER FOR ORAL SOLN PO ×2 (09:24→09:41)
[2018-06-20] MEDS: MAGNESIUM OXIDE 400 MG TAB PO ×2 (09:24→21:00)
[2018-06-20] MEDS: INSULIN GLARGINE [LANTus] (100 UNITS/ML) SYG SC (09:41)
[2018-06-20] MEDS: INSULIN ASPART [NOVOLOG] 3 ML PEN SC ×4 (09:41→21:00)
[2018-06-20 09:52] LABS: ABNORMAL IP MESSAGE 1; HEMATOCRIT 21.7 % (42.0-52.0); HEMOGLOBIN 7.1 g/dl (14.0-18.0); MEAN CORPUSCULAR HEMOGLOBIN 31.4 pg (29.0-33.0); MEAN CORPUSCULAR HGB CONC 32.7 g/dl (32.0-37.0); MEAN PLATELET VOLUME 10.4 fl (7.4-10.4); PLATELET COUNT 280 10^3/UL (140-415); POSITIVE DIFF @See below; RED BLOOD COUNT 2.26 10^6/ul (4.70-6.10); RED CELL DISTRIBUTION WIDTH 14.1 % (11.5-14.5)
[2018-06-20 09:52] LABS: WHITE BLOOD COUNT 28.2 10^3/ul (4.8-10.8)
[2018-06-20 09:57] LABS: ADD MAN DIFF? YES
[2018-06-20 10:14] LABS: PHOSPHORUS 5.2 mg/dl (2.5-4.9)
[2018-06-20 11:00] LABS: HEMATOCRIT 21.8 % (42.0-52.0)
[2018-06-20] MEDS: SOD CHLORIDE 0.9% 500 ML IV (11:00)
[2018-06-20] MEDS: SOD CHLORIDE 0.9% 250 ML IV* (11:35)
[2018-06-20 11:36] LABS: ANISOCYTOSIS 2+ (0-0); BAND NEUTROPHILS #M 0.8 10^3/ul (0.0-0.6); BAND NEUTROPHILS % (M) 3 % (0-4); ERYTHROBLAST% (NRBC) (M) 0 % (0-0); LYMPHOCYTES #M 0.8 10^3/ul (0.8-2.9); LYMPHOCYTES % (M) 3 % (15-51); METAMYELOCYTES %M 0 % (0-0); MONOCYTE #M 0.2 10^3/ul (0.3-0.9); MONOCYTES % (M) 1 % (0-11); MYELOCYTES % (M) 0 % (0-0); PLATELET ESTIMATE NORMAL; POIKILOCYTOSIS 2+ (0-0); POLYCHROMASIA 3+ (0-0); SEG NEUT #M 26.5 10^3/ul (1.6-7.5); SEGMENTED NEUTROPHILS (M) % 93 % (39-77); SMUDGE%M 5 % (0-0)
[2018-06-20 11:37] LABS: IMMEDIATE SPIN CROSSMATCH 1 4
[2018-06-20 14:30] LABS: ALANINE AMINOTRANSFERASE 111 IU/L (13-69); ALBUMIN 3.2 g/dl (3.3-4.9); ALBUMIN/GLOBULIN RATIO 0.96; ALKALINE PHOSPHATASE 128 IU/L (42-121); ANION GAP 10 (5-13); ASPARTATE AMINO TRANSFERASE 53 IU/L (15-46); BILIRUBIN,INDIRECT 0.4 mg/dl (0-1.1); BILIRUBIN,TOTAL 0.4 mg/dl (0.2-1.3); BLOOD UREA NITROGEN 37 mg/dl (7-20); CALCIUM 9.1 mg/dl (8.4-10.2); CARBON DIOXIDE 18 mmol/L (21-31); CHLORIDE 112 mmol/L (97-110); CREATININE 2.27 mg/dl (0.61-1.24); Estimated GFR 29 mL/min (>60); GLUCOSE 179 mg/dl (70-220); SODIUM 140 mmol/L (135-144); TOTAL PROTEIN 6.5 g/dl (6.1-8.1)
[2018-06-20 14:38] LABS: POTASSIUM 6.6 mmol/L (3.5-5.1)
[2018-06-20] MEDS ORDERED: VANCOMYCIN IV PER PHARMACY XX (15:00)
[2018-06-20] MEDS ORDERED: SOD CHLORIDE 0.9% 1,000 ML IV (17:30)
[2018-06-20] MEDS: TAMSULOSIN (SR) 0.4 MG CAP PO (21:00)
[2018-06-20] MEDS: traZODone 100 MG TAB PO (21:00)
[2018-06-20] MEDS: NA POLYST SULFON 15 GM/60 ML BTL PO (21:00)
[2018-06-20] MEDS: ATORVASTATIN 40 MG TAB PO (21:00)
[2018-06-20] MEDS: SENNA/DOCUSATE NA (8.6MG/50MG) TAB PO (21:00)
[2018-06-20 21:12] LABS: HEMATOCRIT 22.1 % (42.0-52.0); HEMOGLOBIN 7.6 g/dl (14.0-18.0)
[2018-06-20 21:29] LABS: ALANINE AMINOTRANSFERASE 107 IU/L (13-69); ALBUMIN 3.2 g/dl (3.3-4.9); ALBUMIN/GLOBULIN RATIO 1.03; ALKALINE PHOSPHATASE 118 IU/L (42-121); ANION GAP 5 (5-13); ASPARTATE AMINO TRANSFERASE 48 IU/L (15-46); BILIRUBIN,INDIRECT 0.4 mg/dl (0-1.1); BILIRUBIN,TOTAL 0.4 mg/dl (0.2-1.3); BLOOD UREA NITROGEN 45 mg/dl (7-20); CARBON DIOXIDE 23 mmol/L (21-31); CHLORIDE 111 mmol/L (97-110); CREATININE 2.47 mg/dl (0.61-1.24); Estimated GFR 26 mL/min (>60); GLUCOSE 222 mg/dl (70-220); SODIUM 139 mmol/L (135-144); TOTAL PROTEIN 6.3 g/dl (6.1-8.1)
[2018-06-20 21:31] LABS: POTASSIUM 6.9 mmol/L (3.5-5.1)
[2018-06-20] MEDS: SODIUM BICARBONATE (IV ADD) 50 MEQ in DEXTROSE 5% 950 ML IV (22:22)
[2018-06-20] MEDS: NA POLYST SULFON 15 GM/60 ML BTL PR (22:30)
[2018-06-20] MEDS: ALBUTEROL 0.083% (NEB) 2.5 MG/3 ML AMP HHN (22:53)
[2018-06-20] MEDS ORDERED: DEXTROSE 50% 50 ML SYRINGE IV (23:00)
[2018-06-20] MEDS: CALCIUM GLUCONATE 10% 1 GM in DEXTROSE 5% 100 ML IVPB (23:40)
[2018-06-20] MEDS: INSULIN REGULAR, HUMAN 100 UNIT/1 ML 3ML VIAL IVP (23:41)
[2018-06-20] MEDS: DEXTROSE 50% 50 ML SYRINGE IV (23:44)
[2018-06-21 00:53] LABS: POTASSIUM 5.7 mmol/L (3.5-5.1)
[2018-06-21] MEDS ORDERED: INSULIN ASPART [NOVOLOG] 3 ML PEN SC (01:00)
[2018-06-21] MEDS: Insulin NOVOLOG SS MILD Algorithm (NPO/TPN/ENTERAL FEEDS) SC ×6 (01:21→20:41)
[2018-06-21] MEDS: ACCU-CHEK XX (02:00)
[2018-06-21] MEDS: VANCOMYCIN 1.25 GM in SOD CHLORIDE 0.9% 250 ML IVPB (03:14)
[2018-06-21 05:09] LABS: ADD MAN DIFF? NO
[2018-06-21 05:23] LABS: ABNORMAL IP MESSAGE 1; BASOPHIL # 0.1 10^3/ul (0.0-0.1); BASOPHILS % 0.2 % (0.0-2.0); HEMATOCRIT 22.5 % (42.0-52.0); HEMOGLOBIN 7.7 g/dl (14.0-18.0); LYMPHOCYTES # 1.8 10^3/ul (0.8-2.9); LYMPHOCYTES % 5.8 % (15.0-51.0); MEAN CORPUSCULAR HEMOGLOBIN 30.2 pg (29.0-33.0); MEAN CORPUSCULAR HGB CONC 34.2 g/dl (32.0-37.0); MEAN CORPUSCULAR VOLUME 88.2 fl (82.0-101.0); MEAN PLATELET VOLUME 10.2 fl (7.4-10.4); MONOCYTE # 2.1 10^3/ul (0.3-0.9); MONOCYTES % 6.8 % (0.0-11.0); NEUTROPHIL # 25.5 10^3/ul (1.6-7.5); NUCLEATED RED BLOOD CELLS% 0.1 /100WBC (0.0-0.0); PLATELET COUNT 250 10^3/UL (140-415); POSITIVE DIFF @See below; RED BLOOD COUNT 2.55 10^6/ul (4.70-6.10); RED CELL DISTRIBUTION WIDTH 15.9 % (11.5-14.5)
[2018-06-21 05:55] LABS: MAGNESIUM 3.3 mg/dl (1.7-2.5)
[2018-06-21 05:55] LABS: PHOSPHORUS 5.2 mg/dl (2.5-4.9)
[2018-06-21 05:56] LABS: ALANINE AMINOTRANSFERASE 96 IU/L (13-69); ALBUMIN/GLOBULIN RATIO 1.15; ALKALINE PHOSPHATASE 105 IU/L (42-121); ANION GAP 11 (5-13); ASPARTATE AMINO TRANSFERASE 36 IU/L (15-46); BILIRUBIN,INDIRECT 0.3 mg/dl (0-1.1); BILIRUBIN,TOTAL 0.3 mg/dl (0.2-1.3); BLOOD UREA NITROGEN 46 mg/dl (7-20); CARBON DIOXIDE 21 mmol/L (21-31); CHLORIDE 111 mmol/L (97-110); CREATININE 2.33 mg/dl (0.61-1.24); Estimated GFR 28 mL/min (>60); GLUCOSE 209 mg/dl (70-220); POTASSIUM 5.3 mmol/L (3.5-5.1); SODIUM 143 mmol/L (135-144); TOTAL PROTEIN 5.6 g/dl (6.1-8.1)
[2018-06-21 05:59] LABS: URIC ACID 7.2 mg/dl (3.1-7.9)
[2018-06-21 05:59] LABS: CREATINE KINASE 130 IU/L (23-200)
[2018-06-21 06:07] LABS: WHITE BLOOD COUNT 30.4 10^3/ul (4.8-10.8)
[2018-06-21] MEDS: FAMOTIDINE 20 MG TAB PO (09:00)
[2018-06-21] MEDS: LACTOBACILLUS RHAMNOSUS CAP PO ×2 (09:00→20:03)
[2018-06-21] MEDS: QUETIAPINE 25 MG TAB PO ×2 (09:00→20:04)
[2018-06-21] MEDS: MAGNESIUM OXIDE 400 MG TAB PO ×2 (09:00→20:04)
[2018-06-21] MEDS: MEMANTINE 5 MG TAB PO ×2 (09:00→20:04)
[2018-06-21] MEDS: CEFEPIME 1GM/50 ML (PMX) 50 ML IVPB (09:14)
[2018-06-21] MEDS: INSULIN GLARGINE [LANTus] (100 UNITS/ML) SYG SC (09:38)
[2018-06-21 12:09] LABS: HEMATOCRIT 22.1 % (42.0-52.0); HEMOGLOBIN 7.5 g/dl (14.0-18.0)
[2018-06-21] MEDS ORDERED: MIDAZOLAM 1 MG/ML 2 ML INJ (13:51)
[2018-06-21] MEDS ORDERED: FENTAnyl 50 MCG/ML VIAL (13:51)
[2018-06-21] MEDS ORDERED: HEPARIN 1000 UNITS/ML 10 ML INJ (14:16)
[2018-06-21] MEDS ORDERED: IODIXANOL LOCM 50 ML BTL (14:16)
[2018-06-21] MEDS: SODIUM BICARBONATE (IV ADD) 50 MEQ in DEXTROSE 5% 950 ML IV (15:26)
[2018-06-21 15:33] LABS: HEMATOCRIT 21.1 % (42.0-52.0); HEMOGLOBIN 7.1 g/dl (14.0-18.0)
[2018-06-21] MEDS: HALOPERIDOL 5 MG INJ IM (16:23)
[2018-06-21] MEDS ORDERED: VANCOMYCIN 750 MG in SOD CHLORIDE 0.9% 150 ML IVPB (18:00)
[2018-06-21] MEDS: traZODone 100 MG TAB PO (20:03)
[2018-06-21] MEDS: TAMSULOSIN (SR) 0.4 MG CAP PO (20:03)
[2018-06-21] MEDS: ATORVASTATIN 40 MG TAB PO (20:04)
[2018-06-21] MEDS: SENNA/DOCUSATE NA (8.6MG/50MG) TAB PO (20:04)
[2018-06-21 20:51] LABS: HEPATITIS B SURFACE ANTIGEN NEGATIVE (NEGATIVE)
[2018-06-21 21:08] LABS: HEPATITIS C VIRAL ANTIBODY NEGATIVE (NEGATIVE); HIV 1&2 ANTIBODY NEGATIVE (NEGATIVE)
[2018-06-22] MEDS: HALOPERIDOL 5 MG INJ IM ×3 (01:09→12:17)
[2018-06-22] MEDS: ACCU-CHEK XX (02:00)
[2018-06-22] MEDS: Insulin NOVOLOG SS MILD Algorithm (NPO/TPN/ENTERAL FEEDS) SC ×6 (02:20→21:00)
[2018-06-22] MEDS: SODIUM BICARBONATE (IV ADD) 50 MEQ in DEXTROSE 5% 950 ML IV ×2 (03:54→17:34)
[2018-06-22 05:48] LABS: ADD MAN DIFF? NO
[2018-06-22 05:56] LABS: WHITE BLOOD COUNT 15.3 10^3/ul (4.8-10.8)
[2018-06-22 05:56] LABS: ABNORMAL IP MESSAGE 1; BASOPHILS % 0.1 % (0.0-2.0); EOSINOPHILS # 0.1 10^3/ul (0.0-0.5); EOSINOPHILS % 0.4 % (0.0-7.0); HEMATOCRIT 20.1 % (42.0-52.0); LYMPHOCYTES # 1.2 10^3/ul (0.8-2.9); MEAN CORPUSCULAR HEMOGLOBIN 29.9 pg (29.0-33.0); MEAN CORPUSCULAR HGB CONC 32.8 g/dl (32.0-37.0); MEAN PLATELET VOLUME 9.9 fl (7.4-10.4); MONOCYTE # 1.4 10^3/ul (0.3-0.9); MONOCYTES % 9.1 % (0.0-11.0); NEUTROPHIL # 12.4 10^3/ul (1.6-7.5); NEUTROPHILS % 81.1 % (39.0-77.0); NUCLEATED RED BLOOD CELLS% 0.1 /100WBC (0.0-0.0); PLATELET COUNT 223 10^3/UL (140-415); POSITIVE DIFF @See below; RED BLOOD COUNT 2.21 10^6/ul (4.70-6.10); RED CELL DISTRIBUTION WIDTH 16.2 % (11.5-14.5)
[2018-06-22 06:22] LABS: ALANINE AMINOTRANSFERASE 73 IU/L (13-69); ALBUMIN 2.5 g/dl (3.3-4.9); ALBUMIN/GLOBULIN RATIO 0.92; ALKALINE PHOSPHATASE 88 IU/L (42-121); ANION GAP 3 (5-13); ASPARTATE AMINO TRANSFERASE 26 IU/L (15-46); BILIRUBIN,INDIRECT 0.2 mg/dl (0-1.1); BILIRUBIN,TOTAL 0.2 mg/dl (0.2-1.3); BLOOD UREA NITROGEN 36 mg/dl (7-20); CALCIUM 8.4 mg/dl (8.4-10.2); CARBON DIOXIDE 26 mmol/L (21-31); CHLORIDE 113 mmol/L (97-110); CREATININE 1.46 mg/dl (0.61-1.24); Estimated GFR 48 mL/min (>60); GLUCOSE 167 mg/dl (70-220); POTASSIUM 3.9 mmol/L (3.5-5.1); SODIUM 142 mmol/L (135-144); TOTAL PROTEIN 5.2 g/dl (6.1-8.1)
[2018-06-22 06:28] LABS: MAGNESIUM 2.9 mg/dl (1.7-2.5)
[2018-06-22 06:45] LABS: HEMOGLOBIN 6.6 g/dl (14.0-18.0)
[2018-06-22] MEDS: QUETIAPINE 25 MG TAB PO ×2 (09:00→21:00)
[2018-06-22] MEDS: LACTOBACILLUS RHAMNOSUS CAP PO ×2 (09:00→21:00)
[2018-06-22] MEDS: MAGNESIUM OXIDE 400 MG TAB PO ×2 (09:00→21:00)
[2018-06-22] MEDS: MEMANTINE 5 MG TAB PO ×2 (09:00→21:00)
[2018-06-22] MEDS: CEFEPIME 1GM/50 ML (PMX) 50 ML IVPB (09:00)
[2018-06-22] MEDS: FAMOTIDINE 20 MG TAB PO (09:00)
[2018-06-22] MEDS: INSULIN GLARGINE [LANTus] (100 UNITS/ML) SYG SC (09:05)
[2018-06-22 12:39] LABS: ADD MAN DIFF? NO
[2018-06-22 12:40] LABS: WHITE BLOOD COUNT 17.2 10^3/ul (4.8-10.8)
[2018-06-22 12:40] LABS: BASOPHILS % 0.2 % (0.0-2.0); EOSINOPHILS % 0.2 % (0.0-7.0); HEMATOCRIT 24.7 % (42.0-52.0); HEMOGLOBIN 8.3 g/dl (14.0-18.0); LYMPHOCYTES # 1.4 10^3/ul (0.8-2.9); MEAN CORPUSCULAR HEMOGLOBIN 30.2 pg (29.0-33.0); MEAN CORPUSCULAR HGB CONC 33.6 g/dl (32.0-37.0); MEAN CORPUSCULAR VOLUME 89.8 fl (82.0-101.0); MEAN PLATELET VOLUME 9.7 fl (7.4-10.4); MONOCYTE # 1.4 10^3/ul (0.3-0.9); MONOCYTES % 8.1 % (0.0-11.0); NEUTROPHIL # 14.2 10^3/ul (1.6-7.5); NEUTROPHILS % 82.6 % (39.0-77.0); PLATELET COUNT 252 10^3/UL (140-415); RED BLOOD COUNT 2.75 10^6/ul (4.70-6.10); RED CELL DISTRIBUTION WIDTH 15.5 % (11.5-14.5)
[2018-06-22] MEDS: CHLORPROMAZINE 25 MG INJ IM (16:17)
[2018-06-22] MEDS ORDERED: CIPROFLOXACIN 500 MG TAB PO (18:00)
[2018-06-22] MEDS ORDERED: metFORMIN 500 MG TAB PO (18:00)
[2018-06-22] MEDS: TAMSULOSIN (SR) 0.4 MG CAP PO (21:00)
[2018-06-22] MEDS: ATORVASTATIN 40 MG TAB PO (21:00)
[2018-06-22] MEDS: traZODone 100 MG TAB PO (21:00)
[2018-06-22] MEDS ORDERED: TAMSULOSIN (SR) 0.4 MG CAP PO (21:00)
[2018-06-22] MEDS ORDERED: LACTOBACILLUS RHAMNOSUS CAP PO (21:00)
[2018-06-22] MEDS ORDERED: RISPERIDONE 1 MG TAB PO (21:00)
[2018-06-22] MEDS ORDERED: SENNA/DOCUSATE NA (8.6MG/50MG) TAB PO (21:00)
[2018-06-22] MEDS ORDERED: MEMANTINE 10 MG TAB PO (21:00)
[2018-06-22] MEDS: SENNA/DOCUSATE NA (8.6MG/50MG) TAB PO (21:00)
[2018-06-22] MEDS ORDERED: CEFEPIME 1GM/50 ML (PMX) 50 ML IVPB (21:00)
[2018-06-23] MEDS: Insulin NOVOLOG SS MILD Algorithm (NPO/TPN/ENTERAL FEEDS) SC ×6 (01:00→21:00)
[2018-06-23] MEDS: ACCU-CHEK XX (02:00)
[2018-06-23] MEDS: HALOPERIDOL 5 MG INJ IM (03:14)
[2018-06-23] MEDS: SODIUM BICARBONATE (IV ADD) 50 MEQ in DEXTROSE 5% 950 ML IV (03:14)
[2018-06-23] MEDS: LORAZEPAM 2 MG INJ IV (04:12)
[2018-06-23 06:09] LABS: ADD MAN DIFF? NO
[2018-06-23 06:20] LABS: WHITE BLOOD COUNT 14.5 10^3/ul (4.8-10.8)
[2018-06-23 06:20] LABS: BASOPHILS % 0.2 % (0.0-2.0); EOSINOPHILS # 0.1 10^3/ul (0.0-0.5); EOSINOPHILS % 0.5 % (0.0-7.0); HEMATOCRIT 26.5 % (42.0-52.0); HEMOGLOBIN 8.9 g/dl (14.0-18.0); LYMPHOCYTES % 6.9 % (15.0-51.0); MEAN CORPUSCULAR HEMOGLOBIN 30.6 pg (29.0-33.0); MEAN CORPUSCULAR HGB CONC 33.6 g/dl (32.0-37.0); MEAN CORPUSCULAR VOLUME 91.1 fl (82.0-101.0); MEAN PLATELET VOLUME 9.7 fl (7.4-10.4); MONOCYTE # 0.9 10^3/ul (0.3-0.9); MONOCYTES % 6.5 % (0.0-11.0); NEUTROPHIL # 12.3 10^3/ul (1.6-7.5); PLATELET COUNT 274 10^3/UL (140-415); RED BLOOD COUNT 2.91 10^6/ul (4.70-6.10); RED CELL DISTRIBUTION WIDTH 15.4 % (11.5-14.5)
[2018-06-23 07:08] LABS: PHOSPHORUS 3.1 mg/dl (2.5-4.9)
[2018-06-23 07:08] LABS: MAGNESIUM 2.6 mg/dl (1.7-2.5)
[2018-06-23 07:15] LABS: ANION GAP 7 (5-13); CARBON DIOXIDE 26 mmol/L (21-31); CHLORIDE 111 mmol/L (97-110); Estimated GFR > 60 mL/min (>60); POTASSIUM 3.5 mmol/L (3.5-5.1); SODIUM 144 mmol/L (135-144)
[2018-06-23 07:32] LABS: BLOOD UREA NITROGEN 27 mg/dl (7-20); CALCIUM 8.9 mg/dl (8.4-10.2); CREATININE 0.99 mg/dl (0.61-1.24); GLUCOSE 152 mg/dl (70-220)
[2018-06-23] MEDS: INSULIN GLARGINE [LANTus] (100 UNITS/ML) SYG SC (08:58)
[2018-06-23] MEDS: MEMANTINE 5 MG TAB PO ×2 (09:00→21:00)
[2018-06-23] MEDS ORDERED: DONEPEZIL 5 MG TAB PO (09:00)
[2018-06-23] MEDS: LACTOBACILLUS RHAMNOSUS CAP PO ×2 (09:00→21:00)
[2018-06-23] MEDS: FAMOTIDINE 20 MG TAB PO (09:00)
[2018-06-23] MEDS: QUETIAPINE 25 MG TAB PO ×2 (09:00→21:00)
[2018-06-23] MEDS: MAGNESIUM OXIDE 400 MG TAB PO ×2 (09:00→21:00)
[2018-06-23] MEDS: POTASSIUM CHLORIDE 20 MEQ in LACTATED RINGER'S 990 ML IV (13:45)
[2018-06-23] MEDS: ATORVASTATIN 40 MG TAB PO (21:00)
[2018-06-23] MEDS: SENNA/DOCUSATE NA (8.6MG/50MG) TAB PO (21:00)
[2018-06-23] MEDS: TAMSULOSIN (SR) 0.4 MG CAP PO (21:00)
[2018-06-23] MEDS: traZODone 100 MG TAB PO (21:00)
[2018-06-24] MEDS: Insulin NOVOLOG SS MILD Algorithm (NPO/TPN/ENTERAL FEEDS) SC ×6 (01:00→21:00)
[2018-06-24] MEDS: ACCU-CHEK XX (01:52)
[2018-06-24] MEDS: POTASSIUM CHLORIDE 20 MEQ in LACTATED RINGER'S 990 ML IV ×3 (03:18→18:11)
[2018-06-24 05:26] LABS: ADD MAN DIFF? NO
[2018-06-24 05:33] LABS: BASOPHILS % 0.1 % (0.0-2.0); EOSINOPHILS # 0.1 10^3/ul (0.0-0.5); EOSINOPHILS % 0.5 % (0.0-7.0); HEMATOCRIT 25.9 % (42.0-52.0); HEMOGLOBIN 8.6 g/dl (14.0-18.0); LYMPHOCYTES % 8.6 % (15.0-51.0); MEAN CORPUSCULAR HEMOGLOBIN 30.4 pg (29.0-33.0); MEAN CORPUSCULAR HGB CONC 33.2 g/dl (32.0-37.0); MEAN CORPUSCULAR VOLUME 91.5 fl (82.0-101.0); MEAN PLATELET VOLUME 9.6 fl (7.4-10.4); MONOCYTE # 0.7 10^3/ul (0.3-0.9); NEUTROPHIL # 9.3 10^3/ul (1.6-7.5); NEUTROPHILS % 84.2 % (39.0-77.0); PLATELET COUNT 305 10^3/UL (140-415); RED BLOOD COUNT 2.83 10^6/ul (4.70-6.10); RED CELL DISTRIBUTION WIDTH 15.8 % (11.5-14.5)
[2018-06-24 06:01] LABS: MAGNESIUM 2.4 mg/dl (1.7-2.5)
[2018-06-24 06:01] LABS: PHOSPHORUS 3.3 mg/dl (2.5-4.9)
[2018-06-24 06:25] LABS: ANION GAP 9 (5-13); BLOOD UREA NITROGEN 22 mg/dl (7-20); CARBON DIOXIDE 26 mmol/L (21-31); CHLORIDE 113 mmol/L (97-110); Estimated GFR > 60 mL/min (>60); GLUCOSE 114 mg/dl (70-220); POTASSIUM 3.6 mmol/L (3.5-5.1); SODIUM 148 mmol/L (135-144)
[2018-06-24] MEDS: LACTOBACILLUS RHAMNOSUS CAP PO ×2 (08:02→21:00)
[2018-06-24] MEDS: MAGNESIUM OXIDE 400 MG TAB PO ×2 (08:02→21:00)
[2018-06-24] MEDS: QUETIAPINE 25 MG TAB PO ×2 (08:03→21:00)
[2018-06-24] MEDS: FAMOTIDINE 20 MG TAB PO (08:03)
[2018-06-24] MEDS: MEMANTINE 5 MG TAB PO ×2 (08:03→21:00)
[2018-06-24] MEDS: INSULIN GLARGINE [LANTus] (100 UNITS/ML) SYG SC (08:30)
[2018-06-24] MEDS: ATORVASTATIN 40 MG TAB PO (21:00)
[2018-06-24] MEDS: SENNA/DOCUSATE NA (8.6MG/50MG) TAB PO (21:00)
[2018-06-24] MEDS: traZODone 100 MG TAB PO (21:00)
[2018-06-24] MEDS: TAMSULOSIN (SR) 0.4 MG CAP PO (21:00)
[2018-06-25] MEDS: Insulin NOVOLOG SS MILD Algorithm (NPO/TPN/ENTERAL FEEDS) SC ×6 (01:00→21:00)
[2018-06-25] MEDS: ACCU-CHEK XX (01:35)
[2018-06-25 05:36] LABS: ADD MAN DIFF? NO
[2018-06-25 05:41] LABS: WHITE BLOOD COUNT 11.1 10^3/ul (4.8-10.8)
[2018-06-25 05:41] LABS: BASOPHILS % 0.3 % (0.0-2.0); EOSINOPHILS # 0.1 10^3/ul (0.0-0.5); EOSINOPHILS % 0.8 % (0.0-7.0); HEMATOCRIT 26.7 % (42.0-52.0); HEMOGLOBIN 8.4 g/dl (14.0-18.0); LYMPHOCYTES # 1.2 10^3/ul (0.8-2.9); LYMPHOCYTES % 11.1 % (15.0-51.0); MEAN CORPUSCULAR HEMOGLOBIN 29.5 pg (29.0-33.0); MEAN CORPUSCULAR HGB CONC 31.5 g/dl (32.0-37.0); MEAN CORPUSCULAR VOLUME 93.7 fl (82.0-101.0); MEAN PLATELET VOLUME 9.3 fl (7.4-10.4); MONOCYTE # 0.7 10^3/ul (0.3-0.9); MONOCYTES % 6.4 % (0.0-11.0); NEUTROPHILS % 80.7 % (39.0-77.0); PLATELET COUNT 344 10^3/UL (140-415); RED BLOOD COUNT 2.85 10^6/ul (4.70-6.10); RED CELL DISTRIBUTION WIDTH 15.8 % (11.5-14.5)
[2018-06-25 06:10] LABS: ANION GAP 9 (5-13); BLOOD UREA NITROGEN 18 mg/dl (7-20); CARBON DIOXIDE 27 mmol/L (21-31); CHLORIDE 113 mmol/L (97-110); Estimated GFR > 60 mL/min (>60); GLUCOSE 97 mg/dl (70-220); POTASSIUM 3.2 mmol/L (3.5-5.1); SODIUM 149 mmol/L (135-144)
[2018-06-25 06:44] LABS: PHOSPHORUS 2.7 mg/dl (2.5-4.9)
[2018-06-25] MEDS: POTASSIUM CHLORIDE 20 MEQ in LACTATED RINGER'S 990 ML IV (06:46)
[2018-06-25] MEDS: MEMANTINE 5 MG TAB PO ×2 (07:25→21:00)
[2018-06-25] MEDS: FAMOTIDINE 20 MG TAB PO (07:25)
[2018-06-25] MEDS: MAGNESIUM OXIDE 400 MG TAB PO ×2 (07:25→21:00)
[2018-06-25] MEDS: LACTOBACILLUS RHAMNOSUS CAP PO ×2 (07:25→21:00)
[2018-06-25] MEDS: QUETIAPINE 25 MG TAB PO ×2 (07:26→21:00)
[2018-06-25] MEDS: POTASSIUM CHLORIDE 100 ML IVPB ×2 (08:22→10:00)
[2018-06-25] MEDS: INSULIN GLARGINE [LANTus] (100 UNITS/ML) SYG SC (08:25)
[2018-06-25] MEDS: traZODone 100 MG TAB PO (21:00)
[2018-06-25] MEDS: ATORVASTATIN 40 MG TAB PO (21:00)
[2018-06-25] MEDS: TAMSULOSIN (SR) 0.4 MG CAP PO (21:00)
[2018-06-25] MEDS: SENNA/DOCUSATE NA (8.6MG/50MG) TAB PO (21:00)
[2018-06-26] MEDS: Insulin NOVOLOG SS MILD Algorithm (NPO/TPN/ENTERAL FEEDS) SC ×6 (01:00→21:00)
[2018-06-26] MEDS: ACCU-CHEK XX (02:49)
[2018-06-26 05:38] LABS: ADD MAN DIFF? NO
[2018-06-26 05:41] LABS: BASOPHILS % 0.3 % (0.0-2.0); EOSINOPHILS # 0.2 10^3/ul (0.0-0.5); EOSINOPHILS % 1.1 % (0.0-7.0); HEMATOCRIT 27.3 % (42.0-52.0); HEMOGLOBIN 8.8 g/dl (14.0-18.0); LYMPHOCYTES # 1.3 10^3/ul (0.8-2.9); LYMPHOCYTES % 9.3 % (15.0-51.0); MEAN CORPUSCULAR HGB CONC 32.2 g/dl (32.0-37.0); MEAN CORPUSCULAR VOLUME 93.2 fl (82.0-101.0); MEAN PLATELET VOLUME 9.3 fl (7.4-10.4); MONOCYTE # 0.9 10^3/ul (0.3-0.9); NEUTROPHIL # 11.8 10^3/ul (1.6-7.5); NEUTROPHILS % 82.9 % (39.0-77.0); PLATELET COUNT 327 10^3/UL (140-415); RED BLOOD COUNT 2.93 10^6/ul (4.70-6.10); RED CELL DISTRIBUTION WIDTH 15.6 % (11.5-14.5)
[2018-06-26 05:41] LABS: WHITE BLOOD COUNT 14.2 10^3/ul (4.8-10.8)
[2018-06-26 06:39] LABS: ANION GAP 7 (5-13); BLOOD UREA NITROGEN 18 mg/dl (7-20); CARBON DIOXIDE 27 mmol/L (21-31); CHLORIDE 114 mmol/L (97-110); CREATININE 0.82 mg/dl (0.61-1.24); Estimated GFR > 60 mL/min (>60); GLUCOSE 124 mg/dl (70-220); MAGNESIUM 1.9 mg/dl (1.7-2.5); POTASSIUM 3.4 mmol/L (3.5-5.1); SODIUM 148 mmol/L (135-144)
[2018-06-26] MEDS: hydrALAzine 20 MG INJ IV (08:10)
[2018-06-26] MEDS: INSULIN GLARGINE [LANTus] (100 UNITS/ML) SYG SC (08:16)
[2018-06-26] MEDS: LACTOBACILLUS RHAMNOSUS CAP PO ×2 (09:03→22:00)
[2018-06-26] MEDS: MAGNESIUM OXIDE 400 MG TAB PO ×2 (09:04→21:59)
[2018-06-26] MEDS: QUETIAPINE 25 MG TAB PO ×2 (09:04→21:59)
[2018-06-26] MEDS: FAMOTIDINE 20 MG TAB PO (09:04)
[2018-06-26] MEDS: MEMANTINE 5 MG TAB PO ×2 (09:04→22:00)
[2018-06-26] MEDS: POTASSIUM CHLORIDE 20 MEQ in LACTATED RINGER'S 990 ML IV (12:04)
[2018-06-26] MEDS: CEFEPIME 1GM/50 ML (PMX) 50 ML IVPB ×2 (16:33→23:53)
[2018-06-26] MEDS: D5W-0.45 NACL + KCL 20 MEQ 1,000 ML IV (19:01)
[2018-06-26] MEDS: ATORVASTATIN 40 MG TAB PO (21:59)
[2018-06-26] MEDS: TAMSULOSIN (SR) 0.4 MG CAP PO (22:00)
[2018-06-26] MEDS: traZODone 100 MG TAB PO (22:00)
[2018-06-26] MEDS: SENNA/DOCUSATE NA (8.6MG/50MG) TAB PO (22:00)
[2018-06-27] MEDS: Insulin NOVOLOG SS MILD Algorithm (NPO/TPN/ENTERAL FEEDS) SC ×5 (01:00→16:32)
[2018-06-27] MEDS: ACCU-CHEK XX (02:00)
[2018-06-27] MEDS: INSULIN GLARGINE [LANTus] (100 UNITS/ML) SYG SC (08:41)
[2018-06-27] MEDS: MAGNESIUM OXIDE 400 MG TAB PO ×2 (08:42→21:20)
[2018-06-27] MEDS: MEMANTINE 5 MG TAB PO ×2 (08:42→21:20)
[2018-06-27] MEDS: LACTOBACILLUS RHAMNOSUS CAP PO ×2 (08:42→21:20)
[2018-06-27] MEDS: QUETIAPINE 25 MG TAB PO (08:42)
[2018-06-27] MEDS: CEFEPIME 1GM/50 ML (PMX) 50 ML IVPB ×2 (08:42→21:19)
[2018-06-27] MEDS: D5W-0.45 NACL + KCL 20 MEQ 1,000 ML IV (13:51)
[2018-06-27] MEDS: traZODone 100 MG TAB PO (21:20)
[2018-06-27] MEDS: TAMSULOSIN (SR) 0.4 MG CAP PO (21:20)
[2018-06-27] MEDS: ATORVASTATIN 40 MG TAB PO (21:20)
[2018-06-27] MEDS: QUETIAPINE 100 MG TAB PO (21:20)
[2018-06-27] MEDS: SENNA/DOCUSATE NA (8.6MG/50MG) TAB PO (21:20)
[2018-06-28] MEDS: INSULIN ASPART [NOVOLOG] 3 ML PEN SC ×5 (01:00→23:56)
[2018-06-28] MEDS: ACCU-CHEK XX (02:00)
[2018-06-28 06:03] LABS: ADD MAN DIFF? NO
[2018-06-28 06:17] LABS: WHITE BLOOD COUNT 10.8 10^3/ul (4.8-10.8)
[2018-06-28 06:17] LABS: BASOPHIL # 0.1 10^3/ul (0.0-0.1); BASOPHILS % 0.5 % (0.0-2.0); EOSINOPHILS # 0.4 10^3/ul (0.0-0.5); HEMATOCRIT 27.9 % (42.0-52.0); HEMOGLOBIN 8.8 g/dl (14.0-18.0); LYMPHOCYTES # 1.2 10^3/ul (0.8-2.9); MEAN CORPUSCULAR HEMOGLOBIN 29.8 pg (29.0-33.0); MEAN CORPUSCULAR HGB CONC 31.5 g/dl (32.0-37.0); MEAN CORPUSCULAR VOLUME 94.6 fl (82.0-101.0); MEAN PLATELET VOLUME 9.6 fl (7.4-10.4); MONOCYTE # 0.7 10^3/ul (0.3-0.9); MONOCYTES % 6.7 % (0.0-11.0); NEUTROPHIL # 8.4 10^3/ul (1.6-7.5); NEUTROPHILS % 77.4 % (39.0-77.0); PLATELET COUNT 283 10^3/UL (140-415); RED BLOOD COUNT 2.95 10^6/ul (4.70-6.10); RED CELL DISTRIBUTION WIDTH 15.7 % (11.5-14.5)
[2018-06-28 06:55] LABS: ANION GAP 5 (5-13); BLOOD UREA NITROGEN 13 mg/dl (7-20); CALCIUM 8.7 mg/dl (8.4-10.2); CARBON DIOXIDE 31 mmol/L (21-31); CHLORIDE 111 mmol/L (97-110); CREATININE 0.84 mg/dl (0.61-1.24); Estimated GFR > 60 mL/min (>60); GLUCOSE 136 mg/dl (70-220); PHOSPHORUS 3.2 mg/dl (2.5-4.9); POTASSIUM 3.4 mmol/L (3.5-5.1); SODIUM 147 mmol/L (135-144)
[2018-06-28] MEDS: QUETIAPINE 100 MG TAB PO ×2 (08:04→20:31)
[2018-06-28] MEDS: MAGNESIUM OXIDE 400 MG TAB PO ×2 (08:04→20:31)
[2018-06-28] MEDS: MEMANTINE 5 MG TAB PO ×2 (08:04→20:31)
[2018-06-28] MEDS: CEFEPIME 1GM/50 ML (PMX) 50 ML IVPB ×2 (08:04→20:30)
[2018-06-28] MEDS: LACTOBACILLUS RHAMNOSUS CAP PO ×2 (08:04→20:31)
[2018-06-28] MEDS: INSULIN GLARGINE [LANTus] (100 UNITS/ML) SYG SC (08:12)
[2018-06-28] MEDS: D5W-0.45 NACL + KCL 20 MEQ 1,000 ML IV (11:10)
[2018-06-28] MEDS: POTASSIUM CHLORIDE (SR) 20 MEQ TAB PO (12:40)
[2018-06-28] MEDS: MAGNESIUM SULFATE 2 GM/50 ML 50 ML IVPB (15:08)
[2018-06-28] MEDS: POTASSIUM CHLORIDE (SR) 10 MEQ TAB PO (20:24)
[2018-06-28] MEDS: ATORVASTATIN 40 MG TAB PO (20:30)
[2018-06-28] MEDS: traZODone 100 MG TAB PO (20:30)
[2018-06-28] MEDS: TAMSULOSIN (SR) 0.4 MG CAP PO (20:31)
[2018-06-28] MEDS: SENNA/DOCUSATE NA (8.6MG/50MG) TAB PO (20:31)
[2018-06-29] MEDS: ACCU-CHEK XX (02:00)
[2018-06-29] MEDS: D5W-0.45 NACL + KCL 20 MEQ 1,000 ML IV ×2 (05:54→11:53)
[2018-06-29] MEDS: INSULIN ASPART [NOVOLOG] 3 ML PEN SC ×3 (05:55→17:21)
[2018-06-29] MEDS: CEFEPIME 1GM/50 ML (PMX) 50 ML IVPB ×2 (08:45→22:13)
[2018-06-29] MEDS: QUETIAPINE 100 MG TAB PO ×2 (08:46→22:14)
[2018-06-29] MEDS: LACTOBACILLUS RHAMNOSUS CAP PO ×2 (08:46→22:14)
[2018-06-29] MEDS: MAGNESIUM OXIDE 400 MG TAB PO ×2 (08:46→22:15)
[2018-06-29] MEDS: MEMANTINE 5 MG TAB PO ×2 (08:46→22:14)
[2018-06-29] MEDS: INSULIN GLARGINE [LANTus] (100 UNITS/ML) SYG SC (08:49)
[2018-06-29] MEDS ORDERED: INSULIN ASPART [NOVOLOG] 3 ML PEN SC (21:00)
[2018-06-29] MEDS: TAMSULOSIN (SR) 0.4 MG CAP PO (22:14)
[2018-06-29] MEDS: ATORVASTATIN 40 MG TAB PO (22:14)
[2018-06-29] MEDS: traZODone 100 MG TAB PO (22:14)
[2018-06-29] MEDS: SENNA/DOCUSATE NA (8.6MG/50MG) TAB PO (22:15)
[2018-06-29] MEDS: Insulin NOVOLOG SS MILD Algorithm (SS with meals and bedtime) SC (22:17)
[2018-06-30] MEDS: ACCUCHECK AT 2AM (Patients on SS coverage) XX (02:00)
[2018-06-30] MEDS: D5W-0.45 NACL + KCL 20 MEQ 1,000 ML IV ×2 (06:24→22:00)
[2018-06-30] MEDS: MEMANTINE 5 MG TAB PO ×2 (08:00→20:19)
[2018-06-30] MEDS: QUETIAPINE 100 MG TAB PO ×2 (08:00→20:18)
[2018-06-30] MEDS: LACTOBACILLUS RHAMNOSUS CAP PO ×2 (08:00→20:18)
[2018-06-30] MEDS: MAGNESIUM OXIDE 400 MG TAB PO ×2 (08:00→20:19)
[2018-06-30] MEDS: CEFEPIME 1GM/50 ML (PMX) 50 ML IVPB ×2 (08:00→20:19)
[2018-06-30] MEDS: INSULIN GLARGINE [LANTus] (100 UNITS/ML) SYG SC (08:04)
[2018-06-30] MEDS: Insulin NOVOLOG SS MILD Algorithm (SS with meals and bedtime) SC ×4 (08:06→20:09)
[2018-06-30] MEDS: RISPERIDONE 1 MG TAB PO ×2 (09:22→20:19)
[2018-06-30] MEDS: MEGESTROL 40 MG TAB PO (13:45)
[2018-06-30] MEDS: ENOXAPARIN 40 MG/0.4 ML SYG SC (14:10)
[2018-06-30] MEDS: LACTULOSE 30ML CUP PO (20:18)
[2018-06-30] MEDS: TAMSULOSIN (SR) 0.4 MG CAP PO (20:19)
[2018-06-30] MEDS: SENNA/DOCUSATE NA (8.6MG/50MG) TAB PO (20:19)
[2018-06-30] MEDS: ATORVASTATIN 40 MG TAB PO (20:19)
[2018-06-30] MEDS: traZODone 100 MG TAB PO ×2 (20:20→22:44)
[2018-07-01] MEDS: ACCUCHECK AT 2AM (Patients on SS coverage) XX (01:20)
[2018-07-01] MEDS: D5W-0.45 NACL + KCL 20 MEQ 1,000 ML IV (04:33)
[2018-07-01 06:39] LABS: ANION GAP 7 (5-13); BLOOD UREA NITROGEN 13 mg/dl (7-20); CALCIUM 8.2 mg/dl (8.4-10.2); CARBON DIOXIDE 25 mmol/L (21-31); CHLORIDE 114 mmol/L (97-110); CREATININE 0.77 mg/dl (0.61-1.24); Estimated GFR > 60 mL/min (>60); GLUCOSE 114 mg/dl (70-220); POTASSIUM 3.4 mmol/L (3.5-5.1); SODIUM 146 mmol/L (135-144)
[2018-07-01] MEDS: Insulin NOVOLOG SS MILD Algorithm (SS with meals and bedtime) SC ×4 (07:00→21:00)
[2018-07-01] MEDS: INSULIN GLARGINE [LANTus] (100 UNITS/ML) SYG SC (08:10)
[2018-07-01] MEDS: CEFEPIME 1GM/50 ML (PMX) 50 ML IVPB ×2 (09:05→21:22)
[2018-07-01] MEDS: MAGNESIUM OXIDE 400 MG TAB PO ×2 (09:08→21:22)
[2018-07-01] MEDS: RISPERIDONE 1 MG TAB PO ×2 (09:08→21:21)
[2018-07-01] MEDS: MEGESTROL 40 MG TAB PO (09:08)
[2018-07-01] MEDS: MEMANTINE 5 MG TAB PO ×2 (09:08→21:22)
[2018-07-01] MEDS: QUETIAPINE 100 MG TAB PO ×2 (09:08→21:22)
[2018-07-01] MEDS: LACTULOSE 30ML CUP PO ×2 (09:08→21:21)
[2018-07-01] MEDS: LACTOBACILLUS RHAMNOSUS CAP PO ×2 (09:08→21:21)
[2018-07-01] MEDS: ENOXAPARIN 40 MG/0.4 ML SYG SC (09:09)
[2018-07-01] MEDS: ATORVASTATIN 40 MG TAB PO (21:21)
[2018-07-01] MEDS: TAMSULOSIN (SR) 0.4 MG CAP PO (21:22)
[2018-07-01] MEDS: traZODone 100 MG TAB PO (21:22)
[2018-07-01] MEDS: SENNA/DOCUSATE NA (8.6MG/50MG) TAB PO (21:22)
[2018-07-02] MEDS: ACCUCHECK AT 2AM (Patients on SS coverage) XX (02:00)
[2018-07-02] MEDS: Insulin NOVOLOG SS MILD Algorithm (SS with meals and bedtime) SC ×4 (07:50→21:00)
[2018-07-02] MEDS: INSULIN GLARGINE [LANTus] (100 UNITS/ML) SYG SC (07:53)
[2018-07-02] MEDS: MEGESTROL 40 MG TAB PO (08:58)
[2018-07-02] MEDS: LACTOBACILLUS RHAMNOSUS CAP PO ×2 (08:58→21:02)
[2018-07-02] MEDS: CEFEPIME 1GM/50 ML (PMX) 50 ML IVPB (08:58)
[2018-07-02] MEDS: LACTULOSE 30ML CUP PO ×2 (08:58→21:02)
[2018-07-02] MEDS: MEMANTINE 5 MG TAB PO (08:59)
[2018-07-02] MEDS: QUETIAPINE 100 MG TAB PO ×2 (08:59→22:20)
[2018-07-02] MEDS: MAGNESIUM OXIDE 400 MG TAB PO ×2 (08:59→22:19)
[2018-07-02] MEDS: RISPERIDONE 1 MG TAB PO ×2 (08:59→22:20)
[2018-07-02] MEDS: ENOXAPARIN 40 MG/0.4 ML SYG SC (09:01)
[2018-07-02] MEDS: D5W-0.45 NACL + KCL 20 MEQ 1,000 ML IV (14:00)
[2018-07-02] MEDS: SENNA/DOCUSATE NA (8.6MG/50MG) TAB PO (21:02)
[2018-07-02] MEDS: TAMSULOSIN (SR) 0.4 MG CAP PO (21:02)
[2018-07-02] MEDS: ATORVASTATIN 40 MG TAB PO (21:02)
[2018-07-02] MEDS: MEMANTINE 10 MG TAB PO (22:19)
[2018-07-02] MEDS: traZODone 100 MG TAB PO (22:20)
[2018-07-03] MEDS: ACCUCHECK AT 2AM (Patients on SS coverage) XX (02:00)
[2018-07-03] MEDS: Insulin NOVOLOG SS MILD Algorithm (SS with meals and bedtime) SC ×4 (07:00→21:00)
[2018-07-03 07:23] LABS: ADD MAN DIFF? NO
[2018-07-03 07:33] LABS: WHITE BLOOD COUNT 7.5 10^3/ul (4.8-10.8)
[2018-07-03 07:33] LABS: BASOPHIL # 0.1 10^3/ul (0.0-0.1); BASOPHILS % 0.8 % (0.0-2.0); EOSINOPHILS # 0.3 10^3/ul (0.0-0.5); EOSINOPHILS % 3.8 % (0.0-7.0); HEMATOCRIT 26.9 % (42.0-52.0); HEMOGLOBIN 8.8 g/dl (14.0-18.0); LYMPHOCYTES # 1.2 10^3/ul (0.8-2.9); LYMPHOCYTES % 15.3 % (15.0-51.0); MEAN CORPUSCULAR HEMOGLOBIN 30.7 pg (29.0-33.0); MEAN CORPUSCULAR HGB CONC 32.7 g/dl (32.0-37.0); MEAN CORPUSCULAR VOLUME 93.7 fl (82.0-101.0); MEAN PLATELET VOLUME 10.4 fl (7.4-10.4); MONOCYTE # 0.5 10^3/ul (0.3-0.9); NEUTROPHIL # 5.5 10^3/ul (1.6-7.5); NEUTROPHILS % 72.7 % (39.0-77.0); PLATELET COUNT 199 10^3/UL (140-415); RED BLOOD COUNT 2.87 10^6/ul (4.70-6.10); RED CELL DISTRIBUTION WIDTH 15.6 % (11.5-14.5)
[2018-07-03 08:16] LABS: ALANINE AMINOTRANSFERASE 35 IU/L (13-69); ALBUMIN 2.6 g/dl (3.3-4.9); ALBUMIN/GLOBULIN RATIO 0.81; ALKALINE PHOSPHATASE 101 IU/L (42-121); ANION GAP 7 (5-13); ASPARTATE AMINO TRANSFERASE 24 IU/L (15-46); BILIRUBIN,INDIRECT 0.3 mg/dl (0-1.1); BILIRUBIN,TOTAL 0.3 mg/dl (0.2-1.3); BLOOD UREA NITROGEN 11 mg/dl (7-20); CALCIUM 8.5 mg/dl (8.4-10.2); CARBON DIOXIDE 26 mmol/L (21-31); CHLORIDE 113 mmol/L (97-110); CREATININE 0.74 mg/dl (0.61-1.24); Estimated GFR > 60 mL/min (>60); GLUCOSE 127 mg/dl (70-220); POTASSIUM 3.9 mmol/L (3.5-5.1); SODIUM 146 mmol/L (135-144); TOTAL PROTEIN 5.8 g/dl (6.1-8.1)
[2018-07-03 08:19] LABS: AMMONIA < 9 umol/l (9-30)
[2018-07-03] MEDS: QUETIAPINE 100 MG TAB PO ×2 (08:19→21:55)
[2018-07-03] MEDS: MAGNESIUM OXIDE 400 MG TAB PO ×2 (08:19→21:55)
[2018-07-03] MEDS: MEGESTROL 40 MG TAB PO (08:19)
[2018-07-03] MEDS: RISPERIDONE 1 MG TAB PO ×2 (08:19→21:55)
[2018-07-03] MEDS: MEMANTINE 10 MG TAB PO ×2 (08:19→21:54)
[2018-07-03] MEDS: LACTOBACILLUS RHAMNOSUS CAP PO ×2 (08:19→21:55)
[2018-07-03] MEDS: LACTULOSE 30ML CUP PO ×2 (08:20→21:54)
[2018-07-03] MEDS: METOPROLOL (XL) 25 MG TAB PO (08:20)
[2018-07-03] MEDS: INSULIN GLARGINE [LANTus] (100 UNITS/ML) SYG SC (08:23)
[2018-07-03] MEDS: ENOXAPARIN 40 MG/0.4 ML SYG SC (08:23)
[2018-07-03] MEDS: HALOPERIDOL 5 MG INJ IM (16:54)
[2018-07-03] MEDS: SENNA/DOCUSATE NA (8.6MG/50MG) TAB PO (21:55)
[2018-07-03] MEDS: traZODone 100 MG TAB PO (21:55)
[2018-07-03] MEDS: ATORVASTATIN 40 MG TAB PO (21:55)
[2018-07-03] MEDS: TAMSULOSIN (SR) 0.4 MG CAP PO (21:55)
[2018-07-04] MEDS: ACCUCHECK AT 2AM (Patients on SS coverage) XX (01:45)
[2018-07-04] MEDS: Insulin NOVOLOG SS MILD Algorithm (SS with meals and bedtime) SC ×4 (07:00→22:17)
[2018-07-04] MEDS: INSULIN GLARGINE [LANTus] (100 UNITS/ML) SYG SC (08:00)
[2018-07-04 08:20] LABS: ADD MAN DIFF? NO
[2018-07-04] MEDS: ENOXAPARIN 40 MG/0.4 ML SYG SC (08:23)
[2018-07-04] MEDS: METOPROLOL (XL) 25 MG TAB PO (08:24)
[2018-07-04 08:27] LABS: BASOPHILS % 0.5 % (0.0-2.0); EOSINOPHILS # 0.2 10^3/ul (0.0-0.5); EOSINOPHILS % 3.2 % (0.0-7.0); HEMATOCRIT 25.3 % (42.0-52.0); HEMOGLOBIN 8.2 g/dl (14.0-18.0); LYMPHOCYTES # 0.9 10^3/ul (0.8-2.9); LYMPHOCYTES % 15.1 % (15.0-51.0); MEAN CORPUSCULAR HGB CONC 32.4 g/dl (32.0-37.0); MEAN CORPUSCULAR VOLUME 92.7 fl (82.0-101.0); MEAN PLATELET VOLUME 10.9 fl (7.4-10.4); MONOCYTE # 0.4 10^3/ul (0.3-0.9); MONOCYTES % 6.9 % (0.0-11.0); NEUTROPHIL # 4.4 10^3/ul (1.6-7.5); NEUTROPHILS % 73.8 % (39.0-77.0); PLATELET COUNT 175 10^3/UL (140-415); RED BLOOD COUNT 2.73 10^6/ul (4.70-6.10); RED CELL DISTRIBUTION WIDTH 15.3 % (11.5-14.5)
[2018-07-04 08:55] LABS: MAGNESIUM 2.3 mg/dl (1.7-2.5)
[2018-07-04 08:55] LABS: PHOSPHORUS 3.4 mg/dl (2.5-4.9)
[2018-07-04 08:58] LABS: ANION GAP 5 (5-13); BLOOD UREA NITROGEN 12 mg/dl (7-20); CALCIUM 8.5 mg/dl (8.4-10.2); CARBON DIOXIDE 27 mmol/L (21-31); CHLORIDE 111 mmol/L (97-110); CREATININE 0.73 mg/dl (0.61-1.24); Estimated GFR > 60 mL/min (>60); GLUCOSE 136 mg/dl (70-220); POTASSIUM 3.6 mmol/L (3.5-5.1); SODIUM 143 mmol/L (135-144)
[2018-07-04] MEDS: LACTOBACILLUS RHAMNOSUS CAP PO ×2 (09:00→22:16)
[2018-07-04] MEDS: MEMANTINE 10 MG TAB PO ×2 (09:00→22:15)
[2018-07-04] MEDS: MEGESTROL 40 MG TAB PO (09:00)
[2018-07-04] MEDS: RISPERIDONE 1 MG TAB PO ×2 (09:00→22:16)
[2018-07-04] MEDS: QUETIAPINE 100 MG TAB PO ×2 (09:00→22:16)
[2018-07-04] MEDS: LACTULOSE 30ML CUP PO ×2 (09:00→22:16)
[2018-07-04] MEDS: MAGNESIUM OXIDE 400 MG TAB PO ×2 (09:00→22:15)
[2018-07-04] MEDS: TAMSULOSIN (SR) 0.4 MG CAP PO (22:15)
[2018-07-04] MEDS: SENNA/DOCUSATE NA (8.6MG/50MG) TAB PO (22:16)
[2018-07-04] MEDS: ATORVASTATIN 40 MG TAB PO (22:16)
[2018-07-04] MEDS: traZODone 100 MG TAB PO (22:17)
[2018-07-05] MEDS: ACCUCHECK AT 2AM (Patients on SS coverage) XX (01:39)
[2018-07-05] MEDS: SOD CHLORIDE 0.9% 500 ML IV (05:15)
[2018-07-05] MEDS: hydrALAzine 20 MG INJ IV (06:31)
[2018-07-05 07:08] LABS: LACTIC ACID 0.9 mmol/L (0.5-2.0)
[2018-07-05] MEDS: QUETIAPINE 100 MG TAB PO ×2 (08:38→21:23)
[2018-07-05] MEDS: MAGNESIUM OXIDE 400 MG TAB PO ×2 (08:38→21:23)
[2018-07-05] MEDS: RISPERIDONE 1 MG TAB PO ×2 (08:38→21:23)
[2018-07-05] MEDS: MEGESTROL 40 MG TAB PO (08:38)
[2018-07-05] MEDS: LACTOBACILLUS RHAMNOSUS CAP PO ×2 (08:38→21:23)
[2018-07-05] MEDS: LACTULOSE 30ML CUP PO ×2 (08:39→21:23)
[2018-07-05] MEDS: MEMANTINE 10 MG TAB PO ×2 (08:44→21:24)
[2018-07-05] MEDS: METOPROLOL (XL) 25 MG TAB PO (08:44)
[2018-07-05] MEDS: Insulin NOVOLOG SS MILD Algorithm (SS with meals and bedtime) SC ×4 (08:45→21:00)
[2018-07-05] MEDS: ENOXAPARIN 40 MG/0.4 ML SYG SC (08:46)
[2018-07-05] MEDS: INSULIN GLARGINE [LANTus] (100 UNITS/ML) SYG SC (08:46)
[2018-07-05] MEDS: traZODone 100 MG TAB PO (21:23)
[2018-07-05] MEDS: SENNA/DOCUSATE NA (8.6MG/50MG) TAB PO (21:23)
[2018-07-05] MEDS: TAMSULOSIN (SR) 0.4 MG CAP PO (21:23)
[2018-07-05] MEDS: ATORVASTATIN 40 MG TAB PO (21:23)
[2018-07-06] MEDS: ACCUCHECK AT 2AM (Patients on SS coverage) XX (01:32)
[2018-07-06] MEDS: MEGESTROL 40 MG TAB PO (08:28)
[2018-07-06] MEDS: MEMANTINE 10 MG TAB PO (08:28)
[2018-07-06] MEDS: LACTOBACILLUS RHAMNOSUS CAP PO (08:28)
[2018-07-06] MEDS: LACTULOSE 30ML CUP PO (08:28)
[2018-07-06] MEDS: MAGNESIUM OXIDE 400 MG TAB PO (08:28)
[2018-07-06] MEDS: QUETIAPINE 100 MG TAB PO (08:28)
[2018-07-06] MEDS: ONDANSETRON 4 MG INJ IV (08:28)
[2018-07-06] MEDS: METOPROLOL (XL) 25 MG TAB PO (08:32)
[2018-07-06] MEDS: ENOXAPARIN 40 MG/0.4 ML SYG SC (08:37)
[2018-07-06] MEDS: INSULIN GLARGINE [LANTus] (100 UNITS/ML) SYG SC (08:38)
[2018-07-06] MEDS: Insulin NOVOLOG SS MILD Algorithm (SS with meals and bedtime) SC ×3 (08:39→17:29)
[2018-07-06] MEDS: RISPERIDONE 1 MG TAB PO (08:51)
== END 2018-07-06 18:35 | disposition home health service (06) | DRG 673 ==
LOC: 6WM 06-22 17:17 → 5EC 07-02 17:54 → 6WM 06-10 00:18 → TEL 06-19 14:00 → ICU 06-20 20:47 → E/R 20:39 → 6WM 06-10 02:12 → PP2 06-11 05:00 → 5EC 07-03 20:21 → 6WM 06-10 11:39
PROVIDERS: Family Medicine
PROC: 06H03DZ Insertion of Intraluminal Device into Inferior Vena Cava, Percutaneous Approach (ICD-10-PCS; principal; 2018-06-21 13:28)
PROC: 30233N1 Transfusion of Nonautologous Red Blood Cells into Peripheral Vein, Percutaneous Approach (ICD-10-PCS; 2018-06-21 13:28)
PROC: 0T9B70Z Drainage of Bladder with Drainage Device, Via Natural or Artificial Opening (ICD-10-PCS; 2018-06-21 13:28)
PROC: 0T2BX0Z Change Drainage Device in Bladder, External Approach (ICD-10-PCS; 2018-06-21 13:28)
DX: T83.518A Infection and inflammatory reaction due to other urinary catheter, initial encounter (principal); A41.9 Sepsis, unspecified organism; G92 Toxic encephalopathy; R65.20 Severe sepsis without septic shock; N17.0 Acute kidney failure with tubular necrosis; N39.0 Urinary tract infection, site not specified; E87.2 Acidosis; I82.4Z3 Acute embolism and thrombosis of unspecified deep veins of distal lower extremity, bilateral; I47.2 Ventricular tachycardia; B96.5 Pseudomonas (aeruginosa) (mallei) (pseudomallei) as the cause of diseases classified elsewhere; D64.9 Anemia, unspecified; E87.5 Hyperkalemia; E11.9 Type 2 diabetes mellitus without complications; E78.5 Hyperlipidemia, unspecified; E88.81 Metabolic syndrome and other insulin resistance; F03.90 Unspecified dementia, unspecified severity, without behavioral disturbance, psychotic disturbance, mood disturbance, and anxiety; F91.8 Other conduct disorders; I10 Essential (primary) hypertension; K80.20 Calculus of gallbladder without cholecystitis without obstruction; M19.90 Unspecified osteoarthritis, unspecified site; N20.0 Calculus of kidney; N32.3 Diverticulum of bladder; N40.1 Benign prostatic hyperplasia with lower urinary tract symptoms; R33.8 Other retention of urine; R13.10 Dysphagia, unspecified; R62.7 Adult failure to thrive; S40.021A Contusion of right upper arm, initial encounter; X58.XXXA Exposure to other specified factors, initial encounter; Z91.81 History of falling; Z79.01 Long term (current) use of anticoagulants; Z79.84 Long term (current) use of oral hypoglycemic drugs
CPT/HCPCS: 36415; 36430; 70450; 71045; 73030-RT; 73060-RT; 74176; 75940; 76705; 76775; 80048; 80053; 80061; 80202; 81001; 82140; 82550; 82553; 82607; 82746; 82962; 83036; 83605; 83735; 84100; 84132; 84439; 84443; 84480; 84484; 84560; 85014; 85018; 85025; 85610; 85730; 86703; 86803; 86850; 86900; 86901; 86920; 87040; 87081; 87086; 87340; 90686; 92526; 92610; 93005; 93306; 93970; 94664; 96361; 96365; 96367; 97110; 97162; 97530; 99291-25